=== PATIENT | female | born 1965 | race Caucasian/White ===

== ENCOUNTER 2018-03-18 13:39 | Emergency (ER) | payer OTHER ==
[2018-03-18 13:44] VITALS: BP 145/78; PULSE 107; RESP 20; TEMP 99.1
[2018-03-18 14:32] LABS: Appearance,Urine Clear (Clear); Bilirubin,Urine Negative (Negative); Blood,Urine Negative (Negative); Color,Urine Colorless; Glucose,Urine (UA) Negative (Negative); Ketones,Urine Negative (Negative); Leukocyte Esterase,Urine Negative (Negative); Nitrite,Urine Negative (Negative); PH, Urine 5.5 (5.0-8.0); Protein,Urine Negative (Negative); Specific Gravity,Urine 1.001 (1.001-1.035); Urobilinogen,Urine <2.0 mg/dL (<2.0)
--- NOTE | 2018-03-18 14:33 | XR ---
Cervical, thoracic, lumbar spine HISTORY: Pain 5 views of the cervical spine, 3 views of the thoracic spine and 3 views of the lumbar spine submitte d. Correlation to prior cervical spine 04/14/2014, MR cervical spine 01/08/2017, lumbar spine MRI 10/05/20 17, x-ray lumbar spine 09/22/2017 Cervical spine show similar findings, retrolisthesis grade 1 C5-6 with associated loss of disc height greatest at C2-3, C4-5 and C5-6, there is associated spondylosis. Postop changes are noted to the ma ndible. Vertebral bodies show preserved height. Bone mineralization may be slightly reduced. Facet ar thropathy changes are present. Multilevel foraminal encroachment present at the foramina bilaterally right greater than left, odontoid view is limited. Congenital fusion is again noted at C1-2. Thoracic spine shows vertebral bodies which have preserved height and bone mineralization. There is m ild multilevel spondylosis. There is a spinal curvature which is S-shaped involving the thoracic lumb ar spine. Lumbar spine shows postoperative change as on prior exam status post fusion L5-S1. The body height an d alignment are stable. There is multilevel spondylosis, some loss of disc height present at L2-3, L1 -2. Atherosclerotic vascular calcifications are present. IMPRESSION: Degenerative disc disease, postop changes, scoliosis and congenital anomaly as described.
[2018-03-18] MEDS ORDERED: MORPHINE SULFATE 2 MG/ML SYRINGE IM STA (14:42)
--- NOTE | 2018-03-18 15:03 | ED ---
General Adult HPI - General Chief complaint: Back Pain/Injury Stated complaint: spine pain Time Seen by Provider: 03/18/18 13:52 Source: patient, RN notes reviewed Mode of arrival: ambulatory Limitations: no limitations - History of Present Illness Initial comments: 52-year-old female since to the emergency department for a chief complaint of chronic back pain that has been worse for one day. Patient states she drove in a car for work 2 hours yesterday and stated for 8 hours at a and has had pain since. Patient states she has chronic pain but this exacerbated the pain from her neck down to her lumbar spine. Patient states it is tender to touch. Patient also complains of pressure in the back with urination. Patient denies any difficulty urinating and states she is having bowel movements regularly. Patient denies any numbness or tingling in the next remedies but states she has shooting pain to the knees. Patient is ALLERGIC to all pain medications except morphine. She is ALLERGIC to morphine pills and can only have IV or IM morphine. Patient has no acute injury to the back. Patient has an MRI scheduled and is following a neurologist and a primary care provider for this. Patient has no other complaints at this time including shortness of breath , chest pain, abdominal pain, nausea or vomiting, headache, or visual changes. - Related Data Home Medications Medication Instructions Recorded Confirmed Losartan [Cozaar] 25 mg PO DAILY 10/01/16 10/02/16 amLODIPine [Norvasc] 5 mg PO HS 10/01/16 10/02/16 Previous Rx's Medication Instructions Recorded Diazepam [Valium] 5 mg PO TID PRN #20 tab 09/28/15 Albuterol Inhaler [Ventolin Hfa 1 - 2 puff INHALATION Q4-6H PRN #1 10/01/16 Inhaler] inhaler Albuterol Nebulized [Ventolin 2.5 mg INHALATION Q4H PRN 10 Days 10/01/16 Nebulized] nebu Allergies Allergy/AdvReac Type Severity Reaction Status Date / Time acetaminophen [From Tylenol] Allergy Dyspnea Verified 03/18/18 13:44 cephalexin monohydrate Allergy Rash/Hives Verified 03/18/18 13:44 [From Keflex] codeine Allergy Rash/Hives Verified 03/18/18 13:44 duloxetine HCl Allergy Rash/Hives Verified 03/18/18 13:44 [From Cymbalta] escitalopram oxalate Allergy Rash/Hives Verified 03/18/18 13:44 [From Lexapro] hydrocodone Allergy Anaphylaxis Verified 03/18/18 13:44 hydrocortisone Allergy Rash/Hives Verified 03/18/18 13:44 hyoscyamine [Hyoscyamine] Allergy Rash/Hives Verified 03/18/18 13:44 Iodinated Contrast- Oral and Allergy Rash/Hives Verified 03/18/18 13:44 IV Dye [Iodinated Contrast Media - IV Dye] meperidine HCl [From Demerol] Allergy Rash/Hives Verified 03/18/18 13:44 metaxalone [From Skelaxin] Allergy Rash/Hives Verified 03/18/18 13:44 methylprednisolone Allergy Rash/Hives Verified 03/18/18 13:44 morphine sulfate Allergy Rash/Hives Verified 03/18/18 13:44 [From Avinza] NSAIDS (Non-Steroidal Allergy Anaphylaxis Verified 03/18/18 13:44 Anti-Inflamma Penicillins Allergy Rash/Hives Verified 03/18/18 13:44 propoxyphene HCl Allergy Rash/Hives Verified 03/18/18 13:44 [From Darvon] tramadol Allergy Rash/Hives Verified 03/18/18 13:44 vancomycin Allergy Rash/Hives Verified 03/18/18 13:44 venlafaxine HCl Allergy Rash/Hives Verified 03/18/18 13:44 [From Effexor] cranberry AdvReac Indigestion Verified 03/18/18 13:44 ondansetron HCl [From Zofran] AdvReac Nausea & Verified 03/18/18 13:44 Vomiting Review of Systems ROS Statement: Those systems with pertinent positive or pertinent negative responses have been documented in the HPI. ROS Other: All systems not noted in ROS Statement are negative. Past Medical History Past Medical History: Hypertension Additional Past Medical History / Comment(s): former etoh abuse, chronic pain syndrome History of Any Multi-Drug Resistant Organisms: None Reported Past Surgical History: Back Surgery, Orthopedic Surgery Additional Past Surgical History / Comment(s): shoulder, jaw, back surg x4 , right hand Past Psychological History: No Psychological Hx Reported Smoking Status: Current some day smoker Past Alcohol Use History: None Reported Past Drug Use History: None Reported General Exam Limitations: no limitations General appearance: alert, in no apparent distress Neck exam: Present: tenderness (Tenderness to the cervical spine.). Absent: meningismus, full ROM (Patient has limited range of motion of the neck to about 45 rotation both sides.), lymphadenopathy, thyromegaly Respiratory exam: Present: normal lung sounds bilaterally. Absent: respiratory distress, wheezes, rales, rhonchi, stridor Cardiovascular Exam: Present: regular rate, normal rhythm, normal heart sounds. Absent: systolic murmur, diastolic murmur, rubs, gallop, clicks GI/Abdominal exam: Present: soft, normal bowel sounds. Absent: distended, tenderness, guarding, rebound, rigid Extremities exam: Present: normal capillary refill (Refill less than 2 seconds and pedal pulse 2+ in the lower extremities bilaterally.) Back exam: Present: tenderness (Tenderness along the thoracic and lumbar spine.) , paraspinal tenderness (Paraspinal tenderness along the thoracic and lumbar spine.). Absent: full ROM (Patient has about 60 flexion and 20 extension of the lumbar spine. Patient has pain with rotation of the thoracic and lumbar spine.), CVA tenderness (R), CVA tenderness (L) Neurological exam: Present: alert, oriented X3, CN II-XII intact Psychiatric exam: Present: normal affect, normal mood Course Vital Signs 03/18/18 13:41 Temperature 99.1 F Pulse Rate 107 H Respiratory 20 Rate Blood Pressure 145/78 O2 Sat by Pulse 98 Oximetry Medical Decision Making - Medical Decision Making 52-year-old female presents to the emergency department for a chief complaint of chronic back pain that was exacerbated in the past day from riding in a car and standing for a long period of time. Patient is scheduled for an MRI coming up and is seeing a neurologist and primary care provider for this problem. Patient states the pain is from her neck to her lumbar spine. She states it is radiating down her legs bilaterally. Patient also complains of some low back pressure when urinating. Patient denies any difficulty urinating or bowel incontinence. Patient denies IV drug use. Patient denies any chance of . On exam patient has some limited range of motion of the neck and spine. She is walking around the room without difficulty. Patient also has tenderness from the neck through the lumbar spine. Patient has some shooting pains down lower legs but denies any numbness or tingling. XR C-spine shows similar findings things to past imaging including associated loss of disc height and grade 1 right throat this the status of C5-C6. Thoracic spine shows vertebral bodies which have preserved height and bone mineralization. There is mild multilevel spondylolysis. There is spinal curvature which is S-shaped involving the thoracic lumbar spine. Lumbar spine shows postop changes as on prior exam status post fusion L5-S1. Body height and alignment are stable. Overall, degenerative disc disease, postop changes, and scoliosis. Urinalysis is unremarkable. Patient states she is ALLERGIC to steroids. She is also ALLERGIC to Motrin and Tylenol or any other pain medications besides IV or IM morphine. Patient was given 2 mg of IV morphine in the emergency department to help alleviate the pain. She was given any pain medications outpatient as she is following a neurologist and primary care provider for this. She will follow- up with the primary care provider in one to 2 days. Patient was educated to return to the emergency Department if she develops difficulty urinating or changes in bowel function. In the meantime she will do so low back exercises and use heat for comfort. - Lab Data Lab Results 03/18/18 Range/Units 14:23 Urine Color Colorless Urine Appearance Clear (Clear) Urine pH 5.5 (5.0-8.0) Ur Specific [place] 1.001 (1.001-1.035) Urine Protein Negative (Negative) Urine Glucose (UA) Negative (Negative) Urine Ketones Negative (Negative) Urine Blood Negative (Negative) Urine Nitrite Negative (Negative) Urine Bilirubin Negative (Negative) Urine Urobilinogen <2.0 (<2.0) mg/dL Ur Leukocyte Esterase Negative (Negative) Disposition Clinical Impression: Chronic back pain Disposition: TRANSFER TO PSYCH HOSP/UNIT Condition: Good Instructions: Chronic Back Pain (ED), Lower Back Exercises (ED) Additional Instructions: Please monitor for any worsening symptoms such as changes in bladder or bowel function and return to the emergency Department if these occur. Otherwise follow-up with primary care in 1-2 days and go to your MRI appointment. Is patient prescribed a controlled substance at d/c from ED?: No Referrals: Bisi Sanchez MD [Primary Care Provider] - 1-2 days Time of Disposition: 15:03
== END 2018-03-18 15:15 | disposition home or self-care (01) ==
LOC: MERGE 13:39 → EC 13:39
DX: M54.9 Dorsalgia, unspecified (principal); G89.29 Other chronic pain; M47.814 Spondylosis without myelopathy or radiculopathy, thoracic region; M51.36 Other intervertebral disc degeneration, lumbar region; I10 Essential (primary) hypertension; F17.200 Nicotine dependence, unspecified, uncomplicated; Z98.890 Other specified postprocedural states; Z79.899 Other long term (current) drug therapy; Z88.0 Allergy status to penicillin; Z88.1 Allergy status to other antibiotic agents; Z88.5 Allergy status to narcotic agent; Z88.6 Allergy status to analgesic agent; Z88.8 Allergy status to other drugs, medicaments and biological substances
CPT/HCPCS: 99283 ×2; 96372 ×2; 81003; 72072; 72050; 72100; J2270

== ENCOUNTER → 2018-04-15 | Outpatient (CLI) | payer OTHER ==
--- NOTE | 2018-04-15 08:48 | US ---
EXAMINATION TYPE: US abdomen complete DATE OF EXAM: 04/15/2018 COMPARISON: CT 03/27/2017 CLINICAL HISTORY: R14.0 ABD BLOATING,R10.84 ABD PAIN. Bloating, abdominal pain. Known horseshoe kidne y. EXAM MEASUREMENTS: Liver Length: 19.5 cm Gallbladder Wall: 0.2 cm CBD: 0.4 cm Spleen: 8.8 cm Right Kidney: 11.5 x 3.4 x 4.3 cm Left Kidney: 11.2 x 4.5 x 4.2 cm Pancreas: Obscured by bowel gas Liver: Heterogeneous, enlarged Gallbladder: wnl Evidence for sonographic Rdz's sign: No CBD: wnl Spleen: wnl Right Kidney: No hydronephrosis or masses seen Left Kidney: No hydronephrosis or masses seen Upper IVC: wnl Abd Aorta: Atherosclerotic changes visualized without AAA IMPRESSION: 1. Fatty hepatic infiltration of the liver.
== END | disposition home or self-care (01) ==
LOC: RADUSWWP 07:44 → MERGE 07:44
PROVIDERS: ATTEND Family Medicine
DX: K76.0 Fatty (change of) liver, not elsewhere classified (principal); R14.0 Abdominal distension (gaseous)
CPT/HCPCS: 76700

== ENCOUNTER → 2018-06-16 | Outpatient (CLI) | payer OTHER ==
--- NOTE | 2018-06-16 17:00 | US ---
EXAMINATION TYPE: US abdomen complete DATE OF EXAM: 06/16/2018 COMPARISON: US 2018 CLINICAL HISTORY: R14.0 Gas pain R10.84 Gen abd pain...... Weight gain, bloating and abdominal tender ness x couple months EXAM MEASUREMENTS: Liver Length: 18.5 cm Gallbladder Wall: 0.2 cm CBD: 0.4 cm Spleen: 9.0 cm Right Kidney: 11.8 x 3.5 x 4.6 cm Left Kidney: 11.5 x 5.1 x 4.1 cm Pancreas: visualized portions wnl, limited by overlying midline bowel gas Liver: enlarged, heterogeneous Gallbladder: wnl Evidence for sonographic Rdz's sign: yes CBD: visualized portions wnl, limited by overlying bowel gas Spleen: wnl Right Kidney: wnl Left Kidney: fullness of renal pelvis extending into calyces Upper IVC: wnl Abd Aorta: atherosclerotic changes seen IMPRESSION: 1. Subtle mild left hydronephrosis is not excluded. Examination as visualized otherwise appears unrem arkable.
== END | disposition home or self-care (01) ==
LOC: RADUSWWP 11:12
PROVIDERS: ATTEND Family Medicine
DX: R10.84 Generalized abdominal pain (principal); R14.0 Abdominal distension (gaseous); R63.5 Abnormal weight gain
CPT/HCPCS: 76700

== ENCOUNTER → 2018-08-23 | Outpatient (CLI) | payer OTHER | LOC: LABWHC1 09:37 | PROVIDERS: ATTEND Internal Medicine Cardiovascular Disease | DX: R07.9 Chest pain, unspecified (principal) | CPT/HCPCS: 36415; 83704 ==

== ENCOUNTER → 2019-05-04 | Outpatient (CLI) | payer OTHER ==
--- NOTE | 2019-05-04 14:58 | US ---
EXAMINATION TYPE: US abdomen complete DATE OF EXAM: 05/04/2019 COMPARISON: US 2018 CLINICAL HISTORY: R74.8 Elevated Liver Enzymes, R14.0 Abnormal Bloat. Elevated liver enzymes, abdomin al bloating, family history of liver CA EXAM MEASUREMENTS: Liver Length: 18.4 cm Gallbladder Wall: 0.1 cm CBD: 0.4 cm Spleen: 9.0 cm Right Kidney: 11.0 x 3.5 x 4.1 cm Left Kidney: 11.7 x 4.7 x 4.7 cm Pancreas: visualized portions wnl, limited by overlying midline bowel gas Liver: enlarged, increased echogenicity, attenuating, heterogeneous with 2.0cm hypoechoic area adjac ent to gallbladder, possible focal sparing Gallbladder: wnl Evidence for sonographic Rdz's sign: no CBD: wnl Spleen: wnl Right Kidney: wnl Left Kidney: Mild dilated renal pelvis extending into ureter Upper IVC: wnl Abd Aorta: wnl IMPRESSION: 1. Hepatomegaly. 2. Mild left hydronephrosis
== END | disposition home or self-care (01) ==
LOC: RADUSWWP 07:52
PROVIDERS: ATTEND Family Medicine
DX: R16.0 Hepatomegaly, not elsewhere classified (principal); N13.30 Unspecified hydronephrosis
CPT/HCPCS: 76700

== ENCOUNTER → 2019-06-06 | Outpatient (CLI) | payer OTHER ==
--- NOTE | 2019-06-07 13:23 | MM ---
Reason for exam: screening (asymptomatic). Last mammogram was performed 1 year and 4 months ago. History: Family history of breast cancer in paternal grandmother. Physical Findings: A clinical breast exam by your physician is recommended on an annual basis and results should be correlated with mammographic findings. MG Screening Mammo w CAD Bilateral CC and MLO view(s) were taken. Prior study comparison: February 16, 2018, mammogram. There are scattered fibroglandular densities. No significant changes when compared with prior studies. ASSESSMENT: Negative, BI-RAD 1 RECOMMENDATION: Routine screening mammogram of both breasts in 1 year.
== END | disposition home or self-care (01) ==
LOC: RADMAMWWP 10:56
PROVIDERS: ATTEND Obstetrics & Gynecology
DX: Z12.31 Encounter for screening mammogram for malignant neoplasm of breast (principal)
CPT/HCPCS: 77067

== ENCOUNTER → 2021-05-31 | Outpatient (CLI) | payer OTHER ==
--- NOTE | 2021-06-04 09:40 | MM ---
Reason for exam: screening (asymptomatic). Last mammogram was performed 2 years ago. History: Patient is postmenopausal. Family history of breast cancer in paternal grandmother. Physical Findings: A clinical breast exam by your physician is recommended on an annual basis and results should be correlated with mammographic findings. MG Screening Mammo w CAD Bilateral CC and MLO view(s) were taken. Prior study comparison: February 16, 2018, mammogram. The breast tissue is heterogeneously dense. This may lower the sensitivity of mammography. Central right CC asymmetric density is more defined. ASSESSMENT: Incomplete: need additional imaging evaluation, BI-RAD 0 RECOMMENDATION: Special view mammogram of the right breast. (3D) If lesion persists on supplemental views, image directed ultrasound is recommended. [facility] will attempt to contact patient to return for supplemental views and ultrasound if indicated.
== END | disposition home or self-care (01) ==
LOC: RADMAMWWP 11:02
PROVIDERS: ATTEND Obstetrics & Gynecology
DX: Z12.31 Encounter for screening mammogram for malignant neoplasm of breast (principal); Z78.0 Asymptomatic menopausal state; Z80.3 Family history of malignant neoplasm of breast
CPT/HCPCS: 77067

== ENCOUNTER → 2021-06-11 | Outpatient (CLI) | payer OTHER ==
--- NOTE | 2021-06-11 15:08 | MM ---
Reason for exam: additional evaluation requested from abnormal screening. Last mammogram was performed less than 1 month ago. History: Patient is postmenopausal. Family history of breast cancer in paternal grandmother. Physical Findings: Nurse did not find any significant physical abnormalities on exam. MG Work Up Mamm w CAD RT CC, MLO, XCCL, ML, and spot compression CC view(s) were taken of the right breast. Prior study comparison: May 31, 2021, bilateral MG screening mammo w CAD. June 06, 2019, bilateral MG screening mammo w CAD. The breast tissue is heterogeneously dense. This may lower the sensitivity of mammography. These results were verbally communicated with the patient and result sheet given to the patient on 06/11/21. ASSESSMENT: Probably benign, BI-RAD 3 RECOMMENDATION: Follow-up diagnostic mammogram of the right breast in 6 months.
== END | disposition home or self-care (01) ==
LOC: RADMAMWWP 14:21
PROVIDERS: ATTEND Obstetrics & Gynecology
DX: R92.2 Inconclusive mammogram (principal); Z78.0 Asymptomatic menopausal state; Z80.3 Family history of malignant neoplasm of breast
CPT/HCPCS: 77065

== ENCOUNTER → 2021-09-20 | Outpatient (CLI) | payer OTHER ==
--- NOTE | 2021-09-20 11:41 | US ---
EXAMINATION TYPE: US abdomen complete DATE OF EXAM: 09/20/2021 COMPARISON: Ultrasound abdomen May 04, 2019. CT abdomen and pelvis 2017 CLINICAL HISTORY: R74.8 Abnormal levels of other serum enzymes. Abdominal pain for the past 7 months with nausea EXAM MEASUREMENTS: Liver Length: 18.0 cm Gallbladder Wall: 1.5 cm CBD: 0.6 cm Spleen: 9.3 X 3.1 cm Right Kidney: 12.1 X 5.0 X 3.5 cm Left Kidney: 11.4 X 4.6 X 5.0 cm Pancreas: wnl Liver: Increased attenuation, hepatomegaly Gallbladder: wnl Evidence for sonographic Rdz's sign: No CBD: wnl Spleen: wnl Right Kidney: No hydronephrosis or masses seen Left Kidney: Prominent calyces Upper IVC: wnl Abd Aorta: wnl The visualized liver is heterogeneously hyperechoic and enlarged. The intrahepatic portion of the IV C and proximal, mid, and distal abdominal aorta are within normal limits. There is no evidence of sh adowing mobile cholelithiasis. Common bile duct is upper limits of normal. The visualized portions of the pancreas are homogenous. The spleen is unremarkable. Kidneys are symmetric and free of hydro nephrosis. No renal lesions are seen on images saved. Poor visualization of lower pole modality cons istent with horseshoe type kidney confirmed on CT. IMPRESSION: Persistent hepatomegaly and heterogeneous hyperechoic appearance consistent with diffuse fatty infiltration and/or underlying hepatocellular disease of liver near no significant change from prior studies.
== END | disposition home or self-care (01) ==
LOC: RADUSWWP 08:06
PROVIDERS: ATTEND Family Medicine
DX: R16.0 Hepatomegaly, not elsewhere classified (principal)
CPT/HCPCS: 76700

== ENCOUNTER → 2021-10-02 | Outpatient (CLI) | payer OTHER ==
--- NOTE | 2021-10-02 10:45 | CT ---
EXAMINATION TYPE: CT facial bones wo con DATE OF EXAM: 10/02/2021 COMPARISON: NONE HISTORY: M26.[address] DLP: 821.6 mGycm. Automated Exposure Control for Dose Reduction was Utilized. TECHNIQUE: CT scan of the facial bones is performed without contrast, axial images are obtained, ramila nal reformatted images are also reviewed. FINDINGS: There is surgical plate fixating healed fracture at the left mandibular angle. There is add itional surgical plate fixating a healed fracture of the right horizontal ramus near symphysis. These cause streak artifact making evaluation slightly suboptimal. No suspicious lucency identified to sug gest loosening or bony destruction at either level. Adjacent soft tissue shows no suspicious well-for med fluid collection or drainable abscess. Temporomandibular joints are maintained bilaterally. Mitu-jw-jzkjzgyk calcified plaque bilateral carotid bulbs right greater than left is present. There i s poorly ossified or nonvisualized top of dens. Ossific fusion of the C2 and C3 vertebra are present. Multilevel uncovertebral facet degenerative changes bilaterally. Patchy opacity right sphenoid sinu s. IMPRESSION: As above
== END | disposition home or self-care (01) ==
LOC: RADCTMAIN 08:39
PROVIDERS: ATTEND Student in an Organized Health Care Education/Training Program
DX: I65.23 Occlusion and stenosis of bilateral carotid arteries (principal)
CPT/HCPCS: 70486

== ENCOUNTER 2021-11-18 09:43 | Emergency (ER) | payer OTHER ==
[2021-11-18 09:49] VITALS: RESP 18
[2021-11-18] MEDS ORDERED: MORPHINE SULFATE 4 MG/ML SYRINGE IM STA (10:12)
--- NOTE | 2021-11-18 10:23 | ED ---
Fall HPI - General Chief Complaint: Fall Stated Complaint: Fell/neck/shoulder pain Time Seen by Provider: 11/18/21 09:54 Source: patient, RN notes reviewed Mode of arrival: wheelchair Limitations: no limitations - History of Present Illness Initial Comments: 56-year-old female presents emergency Department chief complaint of a fall. Patient states she has been some dull down states that she slipped and fell. Patient complains of right shoulder pain upper back pain, neck discomfort. She states she fell forward Herself with her hands. Denies any wrist or forearm pain. Patient states that she has multiple ALLERGIES has not taken anything for the pain. Patient denies any lower extremity symptoms no low back pain no other complaints. - Related Data Home Medications Medication Instructions Recorded Confirmed Losartan [Cozaar] 25 mg PO DAILY 10/01/16 11/18/21 EPINEPHrine (Auto Inject) [Epipen] 0.3 mg IM ONCE PRN 11/18/21 11/18/21 diazePAM [Valium] 5 mg PO BID PRN 11/18/21 11/18/21 Allergies Allergy/AdvReac Type Severity Reaction Status Date / Time acetaminophen [From Tylenol] Allergy Dyspnea & Verified 11/18/21 11:44 Rash calcium carbonate Allergy Rash/Hives Verified 11/18/21 11:44 cephalexin monohydrate Allergy Rash/Hives Verified 11/18/21 11:44 [From Keflex] codeine Allergy Rash/Hives Verified 11/18/21 11:44 duloxetine [From Cymbalta] Allergy Hallucinations Verified 11/18/21 11:44 & Rash duloxetine HCl Allergy Hallucinations Verified 11/18/21 11:44 [From Cymbalta] & Rash escitalopram oxalate Allergy Rash/Hives Verified 11/18/21 11:44 [From Lexapro] hydrocodone Allergy Anaphylaxis Verified 11/18/21 11:44 hydrocortisone Allergy Rash/Hives Verified 11/18/21 11:44 hyoscyamine [Hyoscyamine] Allergy Rash/Hives Verified 11/18/21 11:44 Iodinated Contrast Media Allergy Rash/Hives Verified 11/18/21 11:44 [Iodinated Contrast Media - IV Dye] levocetirizine [From Xyzal] Allergy Vomiting & Verified 11/18/21 11:44 throat swelling linaclotide [From Linzess] Allergy Rash/Hives Verified 11/18/21 11:44 magnesium hydroxide Allergy Rash/Hives Verified 11/18/21 11:44 meperidine HCl [From Demerol] Allergy Rash/Hives Verified 11/18/21 11:44 metaxalone [From Skelaxin] Allergy Rash/Hives Verified 11/18/21 11:44 methylprednisolone Allergy Rash/Hives Verified 11/18/21 11:44 morphine sulfate Allergy Rash/Hives Verified 11/18/21 11:44 [From Avinza] NSAIDS (Non-Steroidal Allergy Rash/Hives Verified 11/18/21 11:44 Anti-Inflamma Penicillins Allergy Anaphylaxis Verified 11/18/21 11:44 -childhood propoxyphene HCl Allergy Rash/Hives Verified 11/18/21 11:44 [From Darvon] sucralfate [From Carafate] Allergy Unknown Verified 11/18/21 11:44 tramadol Allergy Rash/Hives Verified 11/18/21 11:44 vancomycin Allergy Rash/Hives Verified 11/18/21 11:44 venlafaxine HCl Allergy Rash/Hives Verified 11/18/21 11:44 [From Effexor] cranberry AdvReac Indigestion Verified 11/18/21 11:44 ondansetron HCl [From Zofran] AdvReac Nausea & Verified 11/18/21 11:44 Vomiting tuna AdvReac Nausea & Uncoded 11/18/21 11:44 Vomiting Review of Systems ROS Statement: Those systems with pertinent positive or pertinent negative responses have been documented in the HPI. ROS Other: All systems not noted in ROS Statement are negative. Past Medical History Past Medical History: Hypertension Additional Past Medical History / Comment(s): former etoh abuse, chronic pain syndrome History of Any Multi-Drug Resistant Organisms: None Reported Past Surgical History: Back Surgery, Orthopedic Surgery Additional Past Surgical History / Comment(s): shoulder, jaw, back surg x4 , right hand Past Psychological History: No Psychological Hx Reported Smoking Status: Current every day smoker Past Alcohol Use History: None Reported Past Drug Use History: None Reported General Exam Limitations: no limitations General appearance: alert, in no apparent distress Head exam: Present: atraumatic, normocephalic, normal inspection Eye exam: Present: normal appearance, PERRL, EOMI. Absent: scleral icterus, conjunctival injection, periorbital swelling ENT exam: Present: normal exam, normal oropharynx, mucous membranes moist Neck exam: Present: normal inspection, full ROM. Absent: tenderness, meningismus, lymphadenopathy Respiratory exam: Present: normal lung sounds bilaterally. Absent: respiratory distress, wheezes, rales, rhonchi, stridor Cardiovascular Exam: Present: normal rhythm, tachycardia, normal heart sounds. Absent: systolic murmur, diastolic murmur, rubs, gallop, clicks Extremities exam: Present: other (Upper extremity strength equal bilaterally mild tenderness neurovascular intact) Back exam: Present: full ROM, tenderness, paraspinal tenderness (Thoracic no lumbar), vertebral tenderness Neurological exam: Present: alert, oriented X3, CN II-XII intact, reflexes normal. Absent: motor sensory deficit Course Vital Signs 11/18/21 09:46 Temperature 99.2 F Pulse Rate 114 H Respiratory 18 Rate Blood Pressure 156/88 O2 Sat by Pulse 94 L Oximetry Medical Decision Making - Medical Decision Making 56-year-old presented for a fall. Patient has no acute changes patient has chronic changes of her thoracic cervical spine patient has no neurological deficits stone around symptoms. Patient discharged in stable condition return parameters were discussed. Disposition Clinical Impression: Fall, Back strain, Shoulder pain Disposition: HOME SELF-CARE Condition: Stable Instructions (If sedation given, give patient instructions): Back Pain (ED) Additional Instructions: Please return to the Emergency Department if symptoms worsen or any other concerns. Is patient prescribed a controlled substance at d/c from ED?: No Referrals: Bisi Sanchez MD [Primary Care Provider] - 1-2 days Time of Disposition: 11:49
--- NOTE | 2021-11-18 11:19 | XR ---
EXAMINATION TYPE: XR cervical spine 7 views comp, XR thoracic spine 3 views DATE OF EXAM: 11/18/2021 COMPARISON: Cervical spine MRI 01/08/2017 and prior radiograph 03/18/2018. HISTORY: 56-year-old female with pain after fall FINDINGS: Cervical spine: Plate and screw fixation of the mandible. No predental space widening or prevertebral soft tissue swe lling. There appears to be chronic bony ankylosis between C1 and C2 along both anterior and posterior elements. Multilevel hypertrophic facet and uncovertebral joint arthropathy. Degenerative disc disea se throughout the cervical spine shows some progression from 2018 with mild disc space narrowing now present throughout. Anterior endplate spondylosis mid cervical spine. Reversal of the normal cervical lordosis but with preserved alignment. Moderate bony neuroforaminal narrowing on the right at C6-C7 and mild at C5-C6. Moderate bony neuroforaminal narrowing on the left at C4-C5 and C5-C6. Suboptimal odontoid view. Thoracic spine: 12 rib bearing thoracic vertebral bodies. Slight levoconvex curvature along the upper lumbar spine. A ll pedicles are visualized. Vertebral body heights are preserved and alignment is maintained. There m ay be mild degenerative disc disease along the upper third thoracic spine. IMPRESSION: 1. 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 [id number] multilevel spondylotic ribera e (slightly progressed from 2018) with reversal of the normal cervical lordosis which could be positi onal or due to muscle spasm. Moderate bony neuroforaminal narrowing in the mid to lower cervical spin e as outlined above. 2. Thoracic spine: No vertebral compression collapse or malalignment.
--- NOTE | 2021-11-18 11:20 | XR ---
Shoulder HISTORY: Pain 3 views the right shoulder Bone mineralization, joint spaces and alignment are maintained at the glenohumeral joint. No fracture or dislocation. There is acromioclavicular joint arthropathy. Right lung apex as visualized is susanne l. impression: Acromioclavicular joint arthropathy, shoulder MRI may be of benefit
[2021-11-18 12:56] VITALS: BP 148/87; PULSE 98; TEMP 98.9
== END 2021-11-18 12:18 | disposition home or self-care (01) ==
LOC: EC 09:43
DX: S29.012A Strain of muscle and tendon of back wall of thorax, initial encounter (principal); I10 Essential (primary) hypertension; F17.200 Nicotine dependence, unspecified, uncomplicated; Z79.899 Other long term (current) drug therapy; W01.0XXA Fall on same level from slipping, tripping and stumbling without subsequent striking against object, initial encounter
CPT/HCPCS: 72070; 72050; 73030; 99284; 96372; J2270

== ENCOUNTER → 2021-12-25 | Outpatient (CLI) | payer OTHER ==
--- NOTE | 2021-12-25 12:06 | MM ---
Reason for exam: follow-up at short interval from prior study. Last mammogram was performed 7 months ago. History: Patient is postmenopausal. Family history of breast cancer in paternal grandmother. Physical Findings: A clinical breast exam by your physician is recommended on an annual basis and results should be correlated with mammographic findings. MG Diagnostic Mammo RT w CAD CC and MLO view(s) were taken of the right breast. Prior study comparison: June 11, 2021, right breast MG work up mamm w CAD RT. May 31, 2021, bilateral MG screening mammo w CAD. The breast tissue is heterogeneously dense. This may lower the sensitivity of mammography. There is no discrete abnormality. No significant new findings when compared with previous films. These results were verbally communicated with the patient and result sheet given to the patient on 12/25/21. ASSESSMENT: Negative, BI-RAD 1 RECOMMENDATION: Return to routine screening mammogram schedule for both breasts.
== END | disposition home or self-care (01) ==
LOC: RADMAMWWP 10:37
PROVIDERS: ATTEND Obstetrics & Gynecology
DX: R92.2 Inconclusive mammogram (principal); Z78.0 Asymptomatic menopausal state; Z80.3 Family history of malignant neoplasm of breast
CPT/HCPCS: 77065

== ENCOUNTER → 2022-11-11 | Outpatient (CLI) | payer OTHER ==
--- NOTE | 2022-11-12 18:36 | MM ---
Reason for Exam: Screening (asymptomatic). Last mammogram was performed 1 year(s) and 5 month(s) ago. Patient History: Menarche at age 13. First Full-Term at age 19. Postmenopausal. Paternal grandmother had breast cancer. Risk Values: Isabelle 5 year model risk: 0.9%. NCI Lifetime model risk: 5.9%. Prior Study Comparison: 05/31/2021 Bilateral Screening Mammogram, [facility]. 06/11/2021 Right Diagnostic Mammogram, [facility]. 12/25/2021 Right Diagnostic Mammogram, [facility]. Tissue Density: There are scattered fibroglandular densities. Findings: Analyzed By CAD. There appear to be 2 new ill-defined densities within the right breast medial lateral oblique view. In the middle position lower half this measures approximately 0.6 cm located 6 cm the nipple. In the posterior midportion right breast this measures 0.5 cm located 9 cm in the nipple. Additional workup with diagnostic imaging is recommended. Overall Assessment: Incomplete: need additional imaging evaluation, BI-RAD 0 Management: Diagnostic Mammogram of the right breast. Diagnostic Breast Ultrasound of the right breast. A negative mammogram report should not preclude additional follow up of suspicious palpable abnormalities. Patient should continue monthly self breast exam. A clinical breast exam by your physician is recommended on an annual basis and results should be correlated with mammographic findings. Electronically signed and approved by: Lonnie King D.O. Radiologis
== END | disposition home or self-care (01) ==
LOC: RADMAMWWP 13:16
PROVIDERS: ATTEND Obstetrics & Gynecology
DX: Z12.31 Encounter for screening mammogram for malignant neoplasm of breast (principal); Z78.0 Asymptomatic menopausal state; Z80.3 Family history of malignant neoplasm of breast
CPT/HCPCS: 77067

== ENCOUNTER → 2023-05-27 | Outpatient (CLI) | payer OTHER ==
--- NOTE | 2023-05-28 20:34 | CTL ---
EXAMINATION TYPE: CT Low Dose Lung DATE OF EXAM ORDERED: 05/28/2023 HISTORY: Z12.2 NICOTINE DEPENDENCE, CIGARET,Z87.891,F17.210. Current smoker, 42 pack year history. [facility] cancer screening CT DLP: 61.[address] CTDI: 1.70 mGy Automated exposure control for dose reduction was used. SCREENING VISIT: First screening visit COMPARISON: None TECHNIQUE: Low dose computed tomography scan was performed through the chest at 1 mm thick sections a nd reconstructed images in multiple planes at 1 mm and [address] DIAGNOSTIC QUALITY: Satisfactory FINDINGS: LUNG NODULES: 2.2 mm right lower lobe pulmonary nodule (series 4, image 195). Right middle lobe 3 mm pulmonary nodule (series 4, image 180). Few scattered punctate calcified granulomas. LUNGS: COPD: Severity: Mild Fibrosis: Severity: None Lymph nodes: None Other findings: None RIGHT PLEURAL SPACE: Effusion: None Calcification: None Thickening: None Pneumothorax: None LEFT PLEURAL SPACE: Effusion: None Calcification: None Thickening: None Pneumothorax: None HEART: Heart Size: Normal Coronary Calcification: Small Pericardial Effusion: None OTHER FINDINGS: Upper abdomen: Liver is diffusely hypoattenuating. Bony thorax: None Supraclavicular region: None Other: None IMPRESSION: 1. A couple of pulmonary nodules measuring up to [address] LUNG RAD AND CT CHEST RECOMMENDATION: Lung-Rad 2 Benign Appearance or Behavior: Continue annual sc reening with LDCT in 12 months. S Modifier (other clinically significant findings): None
== END | disposition home or self-care (01) ==
LOC: RADCTMAIN 12:43
PROVIDERS: ATTEND Family Medicine
DX: Z12.2 Encounter for screening for malignant neoplasm of respiratory organs (principal); K76.0 Fatty (change of) liver, not elsewhere classified; R91.8 Other nonspecific abnormal finding of lung field; F17.210 Nicotine dependence, cigarettes, uncomplicated
CPT/HCPCS: 71271

== ENCOUNTER → 2023-07-23 | Outpatient (CLI) | payer OTHER ==
--- NOTE | 2023-07-23 14:47 | XR ---
EXAM TYPE: LUMBAR SPINE X RAY SERIES COMPARISON: NONE HISTORY: Chronic back pain TECHNIQUE: 4 views are submitted. FINDINGS: Alignment is anatomic. The pedicles are intact. The transverse processes are intact. There is no s pondylolysis or spondylolisthesis. Postoperative changes L5-S1 with grade 1 slight anterior listhesi s.. Multilevel degenerative changes lumbar spine. IMPRESSION: 1. Multilevel pkzw-ks-npapidze degenerative change of the lumbar spine. 2. Postsurgical changes L5-S1 with grade 1 anterolisthesis.
== END | disposition home or self-care (01) ==
LOC: RADXRMAIN 13:47
PROVIDERS: ATTEND Family Medicine
DX: G89.29 Other chronic pain (principal); M51.36 Other intervertebral disc degeneration, lumbar region; M43.17 Spondylolisthesis, lumbosacral region; M47.816 Spondylosis without myelopathy or radiculopathy, lumbar region
CPT/HCPCS: 72100

== ENCOUNTER → 2023-07-23 | Outpatient (CLI) | payer OTHER ==
[2023-07-23 14:12] VITALS: BP 86/52; PULSE 66; RESP 16
--- NOTE | 2023-07-23 14:54 | P.PAINPG ---
PQRS Measure Charge Sheet Comment: HISTORY OF PRESENT ILLNESS: 58 yr old female as a referral from Dr Claudio Castro presents today w severe and chronic LBP x 5 yrs secondary to post laminectomy syndrome for evaluation. Pt states pain level is provoked at 10 /10 in intensity, constant, localized in the lower lumbar spine, throbbing in character w shooting pain towards the groin and feet. Pain is provoked by standing/ sitting for periods of 15 min or more. Pain is alleviated by PT in 2018, heat, ice, repositioning and rest. Oswestry axial pain score at 31. PMH: OA, HTN PSH: Shoulder Surgery, Jaw Surgery, Lumbar Surgery x4, R Hand Surgery SH: Daily tobacco use, Hx of ETOH abuse, No illicit drug use FH: Non contributory All: See list Meds: See list REVIEW OF ORGAN SYSTEMS: CONSTITUTIONAL: No fevers or chills. No recent weight loss. NEUROLOGICAL: + numbness and tingling along the distal extremities. No seizure disorders or headaches. MUSCULOSKELETAL: + pain PSYCHIATRIC: Denies current depression or suicidal thoughts. Physical Examinations : Constitutional : Cooperative , not in acute distress . Neurologic : Cranial nerve II to XII intact. No focal neurological deficits. Psychiatric : alert & oriented x 3. Matching mood & appropriate affect. Judgment & insight intact. Musculoskeletal : Cervical Spine Motor strength in the deltoid and biceps: Normal right side. Normal Left side Motor strength biceps and the wrist extensors: Normal right side . Normal left side Motor strength in the triceps muscle: Normal right side. Normal left side Deep tendon reflexes: Normal at the biceps. Normal at Brachioradialis. Normal at triceps Vertebral body tenderness to deep palpation over Cervical facet loading test: positive bilaterally Spurling test: positive bilaterally Neck distraction test: positive bilaterally Oj sign: positive bilaterally Lumbar spine Motor strength lower extremities ,thigh and legs 5/5 Right side , 5/5 Left side Deep tendon reflexes : Normal Knee Jerk. Normal Ankle Jerk Vertebral body tenderness over Boles Test positive Lumbar facet Loading Test: positive Right / positive Left Range of motion of the lumbar spine Flexion 30 degrees, extension 10 degrees Straight Leg Raise test: Left/ Right positive at degree Fernando test: positive right / positive left. Severe tenderness over the Sacroiliac joint on the Right / Left sides Gaenslen test: positive bilaterally Seated flexion test: positive bilaterally. Sacral spine : Severe tenderness over the Sacroiliac joint: right side / left side Range of motion: Flexion of the lumbar spine <60 degrees Range of motion: Extension of the lumbar spine <20 degrees Gaenslen's Test positive Jaime's Test positive Fernando test: positive right side / left side Thigh Thrust Test Sacral Thrust Test Imaging: MRI with/ without contrast of the lumbar spine from 10/05/17 reviewed Assessment/ Plan : Post laminectomy syndrome Recommendation of updated MRI lumbar spine non contrast Dx M51.36. RTC in 2 wks for a re evaluation. All questions answered. I have spent greater than 30 minutes on patient care today. Dr Cuello was available by phone for the evaluation of this patient. The time was used to review the medical records including relevant urine studies and Prescription history (MAPs), review of the available imaging, evaluation and examination of the patient, coordination of care with the medical staff and if applicable referring physicians, as well as creation of the medical record PQRS Narrative: Smoking Status Current some day smoker Home Medications: Ambulatory Orders Losartan [Cozaar] 25 mg PO DAILY 10/01/16 EPINEPHrine (Auto Inject) [Epipen] 0.3 mg IM ONCE PRN 11/18/21 diazePAM [Valium] 5 mg PO BID PRN 11/18/21 Controlled Substance Measures - Controlled Substance Measures Is patient prescribed a controlled substance at discharge?: No
== END ==
LOC: PNWHC3 12:50
PROVIDERS: ATTEND Specialist
DX: M96.1 Postlaminectomy syndrome, not elsewhere classified (principal); M19.90 Unspecified osteoarthritis, unspecified site; I10 Essential (primary) hypertension; F17.200 Nicotine dependence, unspecified, uncomplicated; Z79.899 Other long term (current) drug therapy; Z88.1 Allergy status to other antibiotic agents; Z88.8 Allergy status to other drugs, medicaments and biological substances; Z88.5 Allergy status to narcotic agent; Z88.0 Allergy status to penicillin; Z88.2 Allergy status to sulfonamides; Z91.018 Allergy to other foods; Z88.6 Allergy status to analgesic agent
CPT/HCPCS: 99211

== ENCOUNTER → 2023-07-31 | Outpatient (CLI) | payer OTHER ==
--- NOTE | 2023-07-31 19:21 | MR ---
EXAMINATION TYPE: MR lumbar spine wo con DATE OF EXAM: 07/31/2023 COMPARISON: 07/23/2023 HISTORY: 58-year-old female M51.36 DISC DEGENERATION, LUMBAR REGION, Low back pain, hx of surgery TECHNIQUE: Multiplanar, multisequence images of the lumbar spine were acquired without IV contrast. FINDINGS: Horseshoe kidney. Patient status post L5-S1 posterior and interbody fusion. Mild to moderate degenerative disc disease with variable disc desiccation, mild disc height loss, dis c bulging throughout the lumbar spine. There is some edematous Modic type I endplate changes anterior ly at L1-L2. Disc bulges impress on the ventral thecal sac. No large focal disc herniation or significant spinal c anal stenosis is seen. Conus medullaris is normal. No suspicious bone marrow replacement. Vertebral body heights are preserved and alignment is maintained. On the right, there is mild neuroforaminal narrowing throughout. Moderate neuroforaminal narrowing at L5-S1. There is some inhomogeneous low signal partially filling the right neural foramen, sagittal i mage 9 and axial image 3. On the left, there is mild neuroforaminal narrowing at L2-L5 levels. IMPRESSION: 1. Status post L5-S1 posterior and interbody fusion. There is low signal material partially filling t he right neuroforamen suspicious for perineural fibrosis along the exiting right L5 nerve root. Moder ate right neuroforaminal stenosis at this level. 2. Mild to moderate degenerative disc disease throughout the lumbar spine. There is no large focal di sc herniation or significant spinal canal stenosis.
== END | disposition home or self-care (01) ==
LOC: RADMRIMAIN 13:32
PROVIDERS: ATTEND Specialist
DX: M51.36 Other intervertebral disc degeneration, lumbar region (principal); M99.73 Connective tissue and disc stenosis of intervertebral foramina of lumbar region; Z98.890 Other specified postprocedural states
CPT/HCPCS: 72148

== ENCOUNTER → 2023-08-06 | Outpatient (CLI) | payer OTHER ==
[2023-08-06 10:36] VITALS: BP 131/72; PULSE 101; RESP 15; TEMP 98.7
--- NOTE | 2023-08-06 11:21 | P.PAINPG ---
PQRS Measure Charge Sheet Comment: HISTORY OF PRESENT ILLNESS: 58 yr old female presents today w severe and chronic LBP x 5 yrs secondary to post laminectomy syndrome for evaluation. Pt states pain level is provoked at 10 /10 in intensity, constant, localized in the lower lumbar spine, throbbing in character w shooting pain towards the feet. Pain is provoked by standing/ sitting for periods of 15 min or more. Pt initially requested pain medication only and stated Dr Castro told her we will give her that. Also states Dr Castro told her that steroid is not used in the ESIs and states she heard it elevates BP. Clarified to pt that steroid is used for ESIs and if pt develops a reaction, the best place to find out is in a hospital. Pain is alleviated by PT in 2018, heat, ice, repositioning and rest. Oswestry axial pain score at 31. Interventional procedures include L4-S1 fusion Medications include Tyl REVIEW OF ORGAN SYSTEMS: CONSTITUTIONAL: No fevers or chills. No recent weight loss. NEUROLOGICAL: + numbness and tingling along the distal extremities. No seizure disorders or headaches. MUSCULOSKELETAL: + pain PSYCHIATRIC: Denies current depression or suicidal thoughts. Physical Examinations : Constitutional : Cooperative , not in acute distress . Neurologic : Cranial nerve II to XII intact. No focal neurological deficits. Psychiatric : alert & oriented x 3. Matching mood & appropriate affect. Judgment & insight intact. Musculoskeletal : Cervical Spine Motor strength in the deltoid and biceps: Normal right side. Normal Left side Motor strength biceps and the wrist extensors: Normal right side . Normal left side Motor strength in the triceps muscle: Normal right side. Normal left side Deep tendon reflexes: Normal at the biceps. Normal at Brachioradialis. Normal at triceps Vertebral body tenderness to deep palpation over Cervical facet loading test: positive bilaterally Spurling test: positive bilaterally Neck distraction test: positive bilaterally Oj sign: positive bilaterally Lumbar spine Motor strength lower extremities ,thigh and legs 5/5 Right side , 5/5 Left side Deep tendon reflexes : Normal Knee Jerk. Normal Ankle Jerk Vertebral body tenderness over L5 Boles Test positive over BL L5-S1 Lumbar facet Loading Test: positive Right / positive Left Range of motion of the lumbar spine Flexion 30 degrees, extension 10 degrees Straight Leg Raise test: Left/ Right positive at degree Fernando test: positive right / positive left. Severe tenderness over the Sacroiliac joint on the Right / Left sides Gaenslen test: positive bilaterally Seated flexion test: positive bilaterally. Sacral spine : Severe tenderness over the Sacroiliac joint: right side / left side Range of motion: Flexion of the lumbar spine <60 degrees Range of motion: Extension of the lumbar spine <20 degrees Gaenslen's Test positive Jaime's Test positive Fernando test: positive right side / left side Thigh Thrust Test Sacral Thrust Test Imaging: MRI without contrast of the lumbar spine from 07/31/23 reviewed Assessment/ Plan : Post laminectomy syndrome Recommendation of BL TFESI L5-S1. May need a series of injections for optimal pain relief. Risks, benefits of procedure discussed and pt verbalized understanding. Protocol for discontinuation/ continuation of medications palacios rrounding procedure discussed. All questions answered. I have spent greater than 30 minutes on patient care today. Dr Cuello was available by phone for the evaluation of this patient. The time was used to review the medical records including relevant urine studies and Prescription history (MAPs), review of the available imaging, evaluation and examination of the patient, coordination of care with the medical staff and if applicable referring physicians, as well as creation of the medical record PQRS Narrative: Smoking Status Current some day smoker Home Medications: Ambulatory Orders Losartan [Cozaar] 25 mg PO DAILY 10/01/16 EPINEPHrine (Auto Inject) [Epipen] 0.3 mg IM ONCE PRN 11/18/21 diazePAM [Valium] 5 mg PO BID PRN 11/18/21 Controlled Substance Measures - Controlled Substance Measures Is patient prescribed a controlled substance at discharge?: No
== END ==
LOC: PNWHC3 09:30
PROVIDERS: ATTEND Specialist
DX: M96.1 Postlaminectomy syndrome, not elsewhere classified (principal); F17.200 Nicotine dependence, unspecified, uncomplicated; Z88.1 Allergy status to other antibiotic agents; Z88.8 Allergy status to other drugs, medicaments and biological substances; Z91.018 Allergy to other foods; Z88.5 Allergy status to narcotic agent; Z88.0 Allergy status to penicillin; Z88.2 Allergy status to sulfonamides
CPT/HCPCS: 99211

== ENCOUNTER 2023-09-08 08:52 | Emergency (ER) | payer OTHER ==
[2023-09-08] MEDS ORDERED: SODIUM CHLORIDE 0.9% 1,000 ML IV STA (09:11)
[2023-09-08] MEDS ORDERED: METOCLOPRAMIDE 5 MG/ML 2 ML VIAL IVP STA (09:12)
[2023-09-08] MEDS ORDERED: MORPHINE SULFATE 4 MG/ML SYRINGE IVP STA ×2 (09:12→12:58)
--- NOTE | 2023-09-08 09:23 | ED ---
General Adult HPI - General Chief complaint: Abdominal Pain Stated complaint: lower abd pain Time Seen by Provider: 09/08/23 09:00 Source: patient, RN notes reviewed, old records reviewed Mode of arrival: ambulatory Limitations: no limitations - History of Present Illness Initial comments: Patient is a 58-year-old female who presents emergency Department complaining of abdominal pain. States the suprapubic in nature. Has a chronic history of back issues but no recent trauma. States she is having severe lower abdominal pain with chronic back pain issues. States she is having increased urinary frequency also suprapubic pain. States this is been a chronic issue for her but seems to have been exacerbated. Denies any previous abdominal surgeries. Denies any other symptoms. Denies any fever. Denies any hematuria. Denies any vaginal bleeding or discharge. Denies any constipation. Denies any diarrhea. Presents for further evaluation at this time of concern for her abdominal pain. Denies any lower extremity paralysis. States she is urinating has been chronic but seems to be worse over the last couple days. - Related Data Home Medications Medication Instructions Recorded Confirmed diazePAM [Valium] 5 mg PO DAILY PRN 11/18/21 09/08/23 Losartan [Cozaar] 50 mg PO DAILY 09/08/23 09/08/23 Previous Rx's Medication Instructions Recorded Dicyclomine [Bentyl] 10 mg PO TID PRN 7 Days #21 capsule 09/08/23 Allergies Allergy/AdvReac Type Severity Reaction Status Date / Time acetaminophen [From Tylenol] Allergy Dyspnea & Verified 09/08/23 10:08 Rash calcium carbonate Allergy Rash/Hives Verified 09/08/23 10:08 cephalexin monohydrate Allergy Rash/Hives Verified 09/08/23 10:08 [From Keflex] codeine Allergy Rash/Hives Verified 09/08/23 10:08 duloxetine [From Cymbalta] Allergy Hallucinations Verified 09/08/23 10:08 & Rash duloxetine HCl Allergy Hallucinations Verified 09/08/23 10:08 [From Cymbalta] & Rash escitalopram oxalate Allergy Rash/Hives Verified 09/08/23 10:08 [From Lexapro] hydrocodone Allergy Anaphylaxis Verified 09/08/23 10:08 hydrocortisone Allergy Rash/Hives Verified 09/08/23 10:08 hyoscyamine [Hyoscyamine] Allergy Rash/Hives Verified 09/08/23 10:08 Iodinated Contrast Media Allergy Rash/Hives Verified 09/08/23 10:08 [Iodinated Contrast Media - IV Dye] levocetirizine [From Xyzal] Allergy Vomiting & Verified 09/08/23 10:08 throat swelling linaclotide [From Linzess] Allergy Rash/Hives Verified 09/08/23 10:08 magnesium hydroxide Allergy Rash/Hives Verified 09/08/23 10:08 meperidine HCl [From Demerol] Allergy Rash/Hives Verified 09/08/23 10:08 metaxalone [From Skelaxin] Allergy Rash/Hives Verified 09/08/23 10:08 methylprednisolone Allergy Rash/Hives Verified 09/08/23 10:08 morphine sulfate Allergy Rash/Hives Verified 09/08/23 10:08 [From Avinza] NSAIDS (Non-Steroidal Allergy Rash/Hives Verified 09/08/23 10:08 Anti-Inflamma Penicillins Allergy Anaphylaxis Verified 09/08/23 10:12 -childhood propoxyphene HCl Allergy Rash/Hives Verified 09/08/23 10:08 [From Darvon] sucralfate [From Carafate] Allergy Unknown Verified 09/08/23 10:08 tramadol Allergy Rash/Hives Verified 09/08/23 10:08 vancomycin Allergy Rash/Hives Verified 09/08/23 10:08 venlafaxine HCl Allergy Rash/Hives Verified 09/08/23 10:08 [From Effexor] cranberry AdvReac Indigestion Verified 09/08/23 10:08 ondansetron HCl [From Zofran] AdvReac Nausea & Verified 09/08/23 10:08 Vomiting tuna AdvReac Nausea & Uncoded 09/08/23 08:58 Vomiting Review of Systems ROS Statement: Those systems with pertinent positive or pertinent negative responses have been documented in the HPI. Review of Systems: CONST: Denies fever EYES: Denies blurry vision ENT: Denies nasal congestion C/V: Denies Chest pain RESP: Denies shortness of breath GI: Endorses Abdominal pain : Denies dysuria SKIN: Denies rash. MSK: Denies joint pain. NEURO: Denies headache ROS Other: All systems not noted in ROS Statement are negative. Past Medical History Past Medical History: Hypertension Additional Past Medical History / Comment(s): former etoh abuse, chronic pain syndrome History of Any Multi-Drug Resistant Organisms: None Reported Past Surgical History: Back Surgery, Orthopedic Surgery Additional Past Surgical History / Comment(s): shoulder, jaw, back surg x4 , right hand Past Psychological History: No Psychological Hx Reported Smoking Status: Current every day smoker Past Alcohol Use History: None Reported Past Drug Use History: None Reported General Exam - General Exam Comments Initial Comments: General: Appears in mild to moderate distress. HEAD: Normal with no signs of head trauma. EYES: PERRLA, EOMI, conjunctiva normal, no discharge. ENT: Hearing grossly intact, normal oropharynx. RESPIRATORY: Clear breath sounds bilaterally. No wheezes, rales, or rhonchi. C/V: Tachycardic with regular rhythm. S1 and S2 auscultated, no edema, peripheral pulses 2+ and intact throughout ABD: Abdomen soft, tender to palpation in bilateral lower quadrants and suprapubically. Appears to have some bladder distention on exam. EXT: Normal range of motion, no obvious deformity SKIN: No rashes or lesions observed on exposed skin. NEURO: Alert and oriented 4. No focal deficits. Limitations: no limitations Course Vital Signs 09/08/23 09/08/23 09/08/23 08:55 10:00 11:39 Temperature 97.6 F 98.1 F Pulse Rate 120 H 71 65 Respiratory 18 18 22 Rate Blood Pressure 154/74 119/78 109/70 O2 Sat by Pulse 99 100 98 Oximetry 09/08/23 09/08/23 09/08/23 12:26 13:28 14:41 Temperature Pulse Rate 65 77 70 Respiratory 20 20 16 Rate Blood Pressure 123/85 118/72 127/82 O2 Sat by Pulse 100 96 97 Oximetry Medical Decision Making - Medical Decision Making Was pt. sent in by a medical professional or institution (, PA, MASTER TAX ADVISOR, urgent care, hospital, or intermediate...) When possible be specific @ -No Did you speak to anyone other than the patient for history (EMS, parent, family, police, friend...)? What history was obtained from this source @ -No Did you review nursing and triage notes (agree or disagree)? Why? @ -I reviewed and agree with nursing and triage notes Were old charts reviewed (outside hosp., previous admission, EMS record, old EKG, old radiological studies, urgent care reports/EKG's, intermediate records)? Report findings @ -No old charts were reviewed Differential Diagnosis (chest pain, altered mental status, abdominal pain women, abdominal pain men, vaginal bleeding, weakness, fever, dyspnea, syncope, headache, dizziness, GI bleed, back pain, seizure, CVA, palpatations, mental health, musculoskeletal)? @ -Differential Abdominal Pain Women: Appendicitis, Cholecystitis, diverticulosis, ischemic bowel, pancreatitis, hepatitis, UTI, gastroenteritis, AAA, incarcerated hernia, bowel obstruction, constipation, inflammatory bowel, hepatitis, peptic ulcer disease, splenic infarction, perforated viscus, vulvitis, ovarian torsion, PID, kidney stone, placenta abruption, this is not meant to be an all-inclusive list EKG interpreted by me (3pts min.). @ -As above X-rays interpreted by me (1pt min.). @ -None done CT interpreted by me (1pt min.). @ -CT imaging reveals no obvious acute intra-abdominal process. CT lumbar spine also reveals no obvious acute process. U/S interpreted by me (1pt. min.). @ -None done What testing was considered but not performed or refused? (CT, X-rays, U/S, labs)? Why? @ -None What meds were considered but not given or refused? Why? @ -None Did you discuss the management of the patient with other professionals (professionals i.e. , PA, MASTER TAX ADVISOR, lab, RT, psych nurse, social worker school, enrollment consultant, teacher, health promotion officer, manager of case)? Give summary @ -No Was smoking cessation discussed for >3mins.? @ -No Was critical care preformed (if so, how long)? @ -No Were there social determinants of health that impacted care today? How? (Homelessness, low income, unemployed, alcoholism, drug addiction, transportation, low edu. Level, literacy, decrease access to med. care, penitentiary, rehab)? @ -No Was there de-escalation of care discussed even if they declined (Discuss DNR or withdrawal of care, Hospice)? DNR status @ -No What co-morbidities impacted this encounter? (DM, HTN, Smoking, COPD, CAD, Cancer, CVA, ARF, Chemo, Hep., AIDS, mental health diagnosis, sleep apnea, morbid obesity)? @ -None Was patient admitted / discharged? Hospital course, mention meds given and route, prescriptions, significant lab abnormalities, going to OR and other pertinent info. @ -The patient's presentation and physical exam, I'm concerned for what appears to be abdominal pain of unknown etiology. I'm concerned for urinary retention. We will obtain a bladder scan as well as abdominal computed tomography scan imaging, CT lumbar spine and abdominal labs. She'll be sent likely she with IV fluids, morphine, Reglan. Patient was in agreement with this plan. No concern for cauda equina syndrome at this time. Patient does have a history of what sounds like urinary frequency and mild retention seems to be worse currently. Vital signs within acceptable limits except for tachycardia likely secondary to pain. CT imaging is unremarkable. EKG within acceptable limits. Patient's auditory studies remarkable for lactic acidosis of 2.9 which cleared with IV fluids. Remainder the workup unremarkable. On reevaluation, patient is feeling improved. She is not retaining urine. We discussed her workup. I did offer observation admission but she elected to be discharged home with return if symptoms worsen. She was in agreement with this plan. I will provide the patient with a prescription for Bentyl, ODT Zofran. I instructed the patient to follow up with their PCP in the next 1-3 days. I explained that the patient should return to the emergency department if they experience any worsening symptoms. Strict return precautions were discussed with the patient. The patient expressed understanding of these instructions. I answered all questions that the patient had. The patient was discharged home in good condition with their prescriptions and follow up information. Undiagnosed new problem with uncertain prognosis? @ -No Drug Therapy requiring intensive monitoring for toxicity (Heparin, Nitro, Insulin, Cardizem)? @ -No Were any procedures done? @ -No Diagnosis/symptom? @ -Abdominal pain of unknown etiology Acute, or Chronic, or Acute on Chronic? @ -Acute Uncomplicated (without systemic symptoms) or Complicated (systemic symptoms)? @ -Uncomplicated Side effects of treatment? @ -none Exacerbation, Progression, or Severe Exacerbation] @ -no Poses a threat to life or bodily function? @ -no - Lab Data Result diagrams: 09/08/23 09:37 09/08/23 09:37 Lab Results 09/08/23 09/08/23 09/08/23 Range/Units 09:37 09:37 09:37 WBC 8.0 (3.8-10.6) k/uL RBC 4.38 (3.80-5.40) m/uL Hgb 14.4 (11.4-16.0) gm/dL Hct 41.6 (34.0-46.0) % MCV 94.8 (80.0-100.0) fL MCH 32.8 (25.0-35.0) pg MCHC 34.6 (31.0-37.0) g/dL RDW 11.7 (11.5-15.5) % Plt Count 278 (150-450) k/uL MPV 7.9 Neutrophils % 69 % Lymphocytes % 22 % Monocytes % 5 % Eosinophils % 3 % Basophils % 1 % Neutrophils # 5.5 (1.3-7.7) k/uL Lymphocytes # 1.8 (1.0-4.8) k/uL Monocytes # 0.4 (0-1.0) k/uL Eosinophils # 0.2 (0-0.7) k/uL Basophils # 0.0 (0-0.2) k/uL PT 10.4 (10.0-12.5) sec INR 0.9 (<1.2) APTT 24.4 (22.0-30.0) sec Sodium (137-145) mmol/L Potassium (3.5-5.1) mmol/L Chloride (98-107) mmol/L Carbon Dioxide (22-30) mmol/L Anion Gap mmol/L BUN (7-17) mg/dL Creatinine (0.52-1.04) mg/dL Est GFR (CKD-EPI)AfAm (>60 ml/min/1.73 sqM) Est GFR (CKD-EPI)NonAf (>60 ml/min/1.73 sqM) Glucose (74-99) mg/dL Lactic Ac Sepsis Rflx Plasma Lactic Acid José Luis (0.7-2.0) mmol/L Calcium (8.4-10.2) mg/dL Total Bilirubin (0.2-1.3) mg/dL AST (14-36) U/L ALT (4-34) U/L Alkaline Phosphatase (38-126) U/L Total Protein (6.3-8.2) g/dL Albumin (3.5-5.0) g/dL Amylase (30-110) U/L Lipase (23-300) U/L Urine Color Colorless Urine Appearance Clear (Clear) Urine pH 5.0 (5.0-8.0) Ur Specific [place] 1.002 (1.001-1.035) Urine Protein Negative (Negative) Urine Glucose (UA) Negative (Negative) Urine Ketones Negative (Negative) Urine Blood Negative (Negative) Urine Nitrite Negative (Negative) Urine Bilirubin Negative (Negative) Urine Urobilinogen <2.0 (<2.0) mg/dL Ur Leukocyte Esterase Negative (Negative) 09/08/23 09/08/23 09/08/23 Range/Units 09:37 09:37 10:11 WBC (3.8-10.6) k/uL RBC (3.80-5.40) m/uL Hgb (11.4-16.0) gm/dL Hct (34.0-46.0) % MCV (80.0-100.0) fL MCH (25.0-35.0) pg MCHC (31.0-37.0) g/dL RDW (11.5-15.5) % Plt Count (150-450) k/uL MPV Neutrophils % % Lymphocytes % % Monocytes % % Eosinophils % % Basophils % % Neutrophils # (1.3-7.7) k/uL Lymphocytes # (1.0-4.8) k/uL Monocytes # (0-1.0) k/uL Eosinophils # (0-0.7) k/uL Basophils # (0-0.2) k/uL PT (10.0-12.5) sec INR (<1.2) APTT (22.0-30.0) sec Sodium 136 L (137-145) mmol/L Potassium 3.7 (3.5-5.1) mmol/L Chloride 100 (98-107) mmol/L Carbon Dioxide 24 (22-30) mmol/L Anion Gap 12 mmol/L BUN 5 L (7-17) mg/dL Creatinine 0.64 (0.52-1.04) mg/dL Est GFR (CKD-EPI)AfAm >90 (>60 ml/min/1.73 sqM) Est GFR (CKD-EPI)NonAf >90 (>60 ml/min/1.73 sqM) Glucose 143 H (74-99) mg/dL Lactic Ac Sepsis Rflx Y Plasma Lactic Acid José Luis 2.9 H* (0.7-2.0) mmol/L Calcium 9.8 (8.4-10.2) mg/dL Total Bilirubin 0.5 (0.2-1.3) mg/dL AST 25 (14-36) U/L ALT 21 (4-34) U/L Alkaline Phosphatase 81 (38-126) U/L Total Protein 7.7 (6.3-8.2) g/dL Albumin 4.7 (3.5-5.0) g/dL Amylase 57 (30-110) U/L Lipase 160 (23-300) U/L Urine Color Urine Appearance (Clear) Urine pH (5.0-8.0) Ur Specific [place] (1.001-1.035) Urine Protein (Negative) Urine Glucose (UA) (Negative) Urine Ketones (Negative) Urine Blood (Negative) Urine Nitrite (Negative) Urine Bilirubin (Negative) Urine Urobilinogen (<2.0) mg/dL Ur Leukocyte Esterase (Negative) 09/08/23 Range/Units 13:22 WBC (3.8-10.6) k/uL RBC (3.80-5.40) m/uL Hgb (11.4-16.0) gm/dL Hct (34.0-46.0) % MCV (80.0-100.0) fL MCH (25.0-35.0) pg MCHC (31.0-37.0) g/dL RDW (11.5-15.5) % Plt Count (150-450) k/uL MPV Neutrophils % % Lymphocytes % % Monocytes % % Eosinophils % % Basophils % % Neutrophils # (1.3-7.7) k/uL Lymphocytes # (1.0-4.8) k/uL Monocytes # (0-1.0) k/uL Eosinophils # (0-0.7) k/uL Basophils # (0-0.2) k/uL PT (10.0-12.5) sec INR (<1.2) APTT (22.0-30.0) sec Sodium (137-145) mmol/L Potassium (3.5-5.1) mmol/L Chloride (98-107) mmol/L Carbon Dioxide (22-30) mmol/L Anion Gap mmol/L BUN (7-17) mg/dL Creatinine (0.52-1.04) mg/dL Est GFR (CKD-EPI)AfAm (>60 ml/min/1.73 sqM) Est GFR (CKD-EPI)NonAf (>60 ml/min/1.73 sqM) Glucose (74-99) mg/dL Lactic Ac Sepsis Rflx Plasma Lactic Acid José Luis 1.1 (0.7-2.0) mmol/L Calcium (8.4-10.2) mg/dL Total Bilirubin (0.2-1.3) mg/dL AST (14-36) U/L ALT (4-34) U/L Alkaline Phosphatase (38-126) U/L Total Protein (6.3-8.2) g/dL Albumin (3.5-5.0) g/dL Amylase (30-110) U/L Lipase (23-300) U/L Urine Color Urine Appearance (Clear) Urine pH (5.0-8.0) Ur Specific [place] (1.001-1.035) Urine Protein (Negative) Urine Glucose (UA) (Negative) Urine Ketones (Negative) Urine Blood (Negative) Urine Nitrite (Negative) Urine Bilirubin (Negative) Urine Urobilinogen (<2.0) mg/dL Ur Leukocyte Esterase (Negative) - EKG Data -: EKG Interpreted by Me EKG Comments: 12-lead Electrocardiogram Interpretation Note EKG was reviewed and interpreted by myself. 12-lead ECG performed at 0923 is interpreted by me as revealing normal sinus rhythm at a rate of 80 beats per minute. [place] is normal. DC interval is 122 ms, QRS duration is 82 ms, QTc is 417 ms.. There were no ST or T wave abnormalities to suggest myocardial ischemia or injury. R wave progression across the precordium was satisfactory. By my interpretation this EKG is non-diagnostic for acute ischemia. Disposition Clinical Impression: Abdominal pain of unknown etiology, Dehydration Disposition: HOME SELF-CARE Condition: Good Instructions (If sedation given, give patient instructions): Abdominal Pain (ED) Prescriptions: Dicyclomine [Bentyl] 10 mg PO TID PRN 7 Days #21 capsule PRN Reason: Pain Is patient prescribed a controlled substance at d/c from ED?: No Referrals: Bisi Sanchez MD [Primary Care Provider] - 1-2 days Time of Disposition: 14:06
[2023-09-08 09:55] LABS: Basophils % (A) 1 %; Eosinophils # (A) 0.2 k/uL (0-0.7); Eosinophils % (A) 3 %; HCT 41.6 % (34.0-46.0); HGB 14.4 gm/dL (11.4-16.0); Lymphocytes # (A) 1.8 k/uL (1.0-4.8); Lymphocytes % (A) 22 %; MCH 32.8 pg (25.0-35.0); MCHC 34.6 g/dL (31.0-37.0); MCV 94.8 fL (80.0-100.0); Mean Platelet Volume 7.9; Monocytes # (A) 0.4 k/uL (0-1.0); Monocytes % (A) 5 %; Neutrophils # (A) 5.5 k/uL (1.3-7.7); Neutrophils % (A) 69 %; Platelet Count 278 k/uL (150-450); RBC 4.38 m/uL (3.80-5.40); RDW 11.7 % (11.5-15.5)
[2023-09-08 10:03] LABS: INR 0.9 (<1.2); Partial Thromboplastin Time 24.4 sec (22.0-30.0); Prothrombin Time 10.4 sec (10.0-12.5)
[2023-09-08 10:05] LABS: ALT 21 U/L (4-34); AST 25 U/L (14-36); African American GFR (CKD) >90 (>60 ml/min/1.73 sqM); Albumin 4.7 g/dL (3.5-5.0); Alkaline Phosphatase 81 U/L (38-126); Amylase 57 U/L (30-110); Anion Gap 12 mmol/L; Blood Urea Nitrogen 5 mg/dL (7-17); Calcium 9.8 mg/dL (8.4-10.2); Carbon Dioxide 24 mmol/L (22-30); Chloride 100 mmol/L (98-107); Glucose 143 mg/dL (74-99); Lipase 160 U/L (23-300); Non-African American GFR(CKD) >90 (>60 ml/min/1.73 sqM); Potassium 3.7 mmol/L (3.5-5.1); Sodium 136 mmol/L (137-145); Total Bilirubin 0.5 mg/dL (0.2-1.3); Total Protein 7.7 g/dL (6.3-8.2)
[2023-09-08 10:08] LABS: Appearance,Urine Clear (Clear); Bilirubin,Urine Negative (Negative); Blood,Urine Negative (Negative); Color,Urine Colorless; Glucose,Urine (UA) Negative (Negative); Ketones,Urine Negative (Negative); Leukocyte Esterase,Urine Negative (Negative); Nitrite,Urine Negative (Negative); Protein,Urine Negative (Negative); Specific Gravity,Urine 1.002 (1.001-1.035); Urobilinogen,Urine <2.0 mg/dL (<2.0)
[2023-09-08 10:21] VITALS: TEMP 98.1
[2023-09-08] MEDS ORDERED: SODIUM CHLORIDE 0.9% 500 ML 500 ML IV STA (11:23)
--- NOTE | 2023-09-08 11:38 | CT ---
EXAMINATION TYPE: CT abdomen pelvis wo con, CT lumbar spine wo con CT DLP: 862.4 mGycm, Automated exposure control for dose reduction was used. DATE OF EXAM: 09/08/2023 11:18 AM COMPARISON: CT abdomen pelvis most recent from 07/31/2023 MRI lumbar spine. CLINICAL INDICATION:Female, 58 years old with history of abd pain; Bladder pain TECHNIQUE: Axial CT of the ;CT abdomen pelvis wo con, CT lumbar spine wo con;Sagittal and coronal re formats were created on a separate workstation. Axial images of the lumbar spine with sagittal coronal reformats. Contrast used: mL of , (none if empty) Oral contrast used: without Oral Contrast (none if empty) FINDINGS: LOWER CHEST: Unremarkable ABDOMEN LIVER: Diffusely hypoattenuating parenchyma. GALLBLADDER AND BILE DUCTS: Gallbladder is distended. PANCREAS: Unremarkable. SPLEEN: Unremarkable. ADRENAL GLANDS: Unremarkable. 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 No eviden ce of hydronephrosis or renal calculus. The ureters are unremarkable. PELVIS BLADDER: Within normal limits and partially distended. REPRODUCTIVE: Unremarkable. ABDOMEN & PELVIS STOMACH AND BOWEL: No evidence of bowel obstruction. Scattered colonic diverticula are present. PERITONEUM/RETROPERITONEUM: No evidence of pneumoperitoneum or free fluid. VASCULATURE: Moderate atherosclerotic calcifications are present throughout the abdominal aorta and i ts branches. No evidence of aortic aneurysm. MUSCULOSKELETAL/lumbar spine: No acute osseous abnormalities postsurgical changes to L4-L5 with disce ctomy present. Visualized portions of the spinal canal given limitation of streak artifact at L5-S1 i s within normal limits. Fixation hardware is intact. No evidence for significant spinal canal stenosi s. Neural foramen are patent throughout the visualized spine. LYMPH NODES: No gross evidence for lymphadenopathy. SOFT TISSUE/ABDOMINAL WALL: Fat-containing umbilical hernia. IMPRESSION: 1. No evidence for acute abdominal process. Horseshoe kidney without evidence for obstructive uropat hy. The urinary bladder is within normal limits. Normal-appearing appendix. 2. No evidence for significant spinal canal or neural foraminal stenosis. Fixation hardware in the s pine is intact. No evidence for spinal fracture.
[2023-09-08] MEDS ORDERED: MORPHINE SULFATE 2 MG/ML SYRINGE IVP STA (11:47)
[2023-09-08] MEDS ORDERED: ONDANSETRON 4 MG ODT STARTER PACK 2 TAB BTL PO STA (14:31)
[2023-09-08 14:45] VITALS: BP 127/82; PULSE 70; RESP 16
== END 2023-09-08 14:43 | disposition home or self-care (01) ==
LOC: EC 08:52
DX: G31.84 Mild cognitive impairment of uncertain or unknown etiology (principal); E86.0 Dehydration; I10 Essential (primary) hypertension; F17.200 Nicotine dependence, unspecified, uncomplicated; Z79.899 Other long term (current) drug therapy; Z88.0 Allergy status to penicillin; Z88.1 Allergy status to other antibiotic agents; Z88.5 Allergy status to narcotic agent; Z88.6 Allergy status to analgesic agent; Z88.8 Allergy status to other drugs, medicaments and biological substances; Z91.041 Radiographic dye allergy status
CPT/HCPCS: 51798; 36415; 93005; 80053; 82150; 83605; 83690; 85025; 85610; 85730; 81003; 72131; 74176; 99285; 96374; 96375; 96376; 96361 ×2; J2270 ×2; J2765; S0119

== ENCOUNTER → 2024-01-11 | Outpatient (CLI) | payer OTHER ==
--- NOTE | 2024-01-14 08:58 | MM ---
Reason for Exam: Screening (asymptomatic). Last mammogram was performed 1 year(s) and 2 month(s) ago. Patient History: Menarche at age 13. First Full-Term at age 19. Postmenopausal. Paternal grandmother had breast cancer. Risk Values: Isabelle 5 year model risk: 0.9%. NCI Lifetime model risk: 5.7%. Prior Study Comparison: 11/11/2022 Bilateral MG screening mammo w CAD, [facility]. 11/24/2022 Right MG work up mamm w CAD RT, [facility]. 07/10/2023 Right MG 3D diag mammo w/cad RT, [facility]. Tissue Density: The breasts are heterogeneously dense, which may obscure small masses. Findings: Analyzed By CAD. There is no suspicious group of microcalcifications or new suspicious mass in either breast. Benign appearing calcification. Overall Assessment: Benign, BI-RAD 2 Management: Screening Mammogram of both breasts in 1 year. . Patient should continue monthly self-breast exams. A clinical breast exam by your physician is recommended on an annual basis. This exam should not preclude additional follow-up of suspicious palpable abnormalities. Note on Isabelle scores and lifetime risk: 1. A Isabelle score greater than 3% is considered moderate risk. If this is the case, consider specialist referral to assess eligibility for a risk reducing agent. 2. If overall lifetime risk for the development of breast cancer is 20% or higher, the patient may qualify for future screening with alternating mammogram and breast MRI. Electronically signed and approved by: Zoltan Sharp M.D. Radiologis
== END | disposition home or self-care (01) ==
LOC: RADMAMWWP 10:50
PROVIDERS: ATTEND Obstetrics & Gynecology
DX: Z12.31 Encounter for screening mammogram for malignant neoplasm of breast (principal); Z78.0 Asymptomatic menopausal state; Z80.3 Family history of malignant neoplasm of breast
CPT/HCPCS: 77067

== ENCOUNTER → 2024-02-08 | Outpatient (CLI) | payer OTHER ==
--- NOTE | 2024-02-08 21:45 | MR ---
MRI cervical spine and thoracic spine CLINICAL HISTORY: Upper extremity radiculopathy and mid back pain TECHNIQUE: Multiplanar, multisequence imaging of the cervical spine is performed without contrast. COMPARISON: 03/23/2018 FINDINGS: MRI cervical spine: The craniovertebral junction relationship some prevertebral soft tissues are normal. There is loss of the normal cervical lordosis. The cervical vertebral segments are normal in height and alignment there is no fracture or subluxatio n. There is mild degenerative disc disease C4-5 level where there is mild disc bulge and spondylosis. There is moderate degenerative disease at the C5-6 level where there is [id number] disc space narrowing and circumferential disc bulge. There is no cervical disc herniation. The cervical cord is normal in size and signal intensity and there is no cervical stenosis.. There is multilevel neural foraminal stenosis as follows; mild at C2-3 on the left, mild to moderate at C3-4 on the right, and moderate to severe at C4-5 on the right. MRI thoracic spine: The thoracic vertebral segments are normal in height and alignment and there is no fracture or sublux ation. The disc spaces are well maintained in height and there is no significant degenerative disc disease. There is no thoracic disc herniation. The thoracic cord is normal in size and signal intensity and there is no thoracic spinal stenosis. The neuroforamina are widely patent. Paraspinal soft tissues unremarkable. IMPRESSION: 1. [id number] degenerative disc disease in the lower cervical spine as described above. No cerv ical disc herniations. 2. Multilevel neural foraminal stenosis in the cervical region as described above, right greater melody n left. 3. No cervical or thoracic spinal stenosis or cervical or thoracic cord abnormality. 4. No thoracic disc herniation or neural foraminal stenosis.
== END | disposition home or self-care (01) ==
LOC: RADMRIMAIN 16:19
PROVIDERS: ATTEND Internal Medicine
DX: M50.121 Cervical disc disorder at C4-C5 level with radiculopathy (principal); M50.122 Cervical disc disorder at C5-C6 level with radiculopathy; M47.22 Other spondylosis with radiculopathy, cervical region; M99.71 Connective tissue and disc stenosis of intervertebral foramina of cervical region; M25.512 Pain in left shoulder; M25.511 Pain in right shoulder
CPT/HCPCS: 72141; 72146

== ENCOUNTER → 2024-02-11 | Outpatient (CLI) | payer OTHER ==
[2024-02-11 13:58] VITALS: BP 146/82; PULSE 69; RESP 16
--- NOTE | 2024-02-11 15:09 | P.PAINPG ---
Objective - Vital Signs Vital signs: Intake & Output 02/10/24 02/11/24 02/11/24 18:59 06:59 18:59 Weight 67.132 kg PQRS Measure Charge Sheet Comment: HISTORY OF PRESENT ILLNESS: A 58 yr old female presents today w severe and chronic LBP x 5 yrs secondary to L4-L5 post laminectomy syndrome for evaluation. She did not follow up w having the BL TFESI L5-S1 and stated today she does not want injections. Pt is allergic to most nonnarcotic, Schedule III and some II narcotics. Pt states pain level is provoked at 10 /10 in intensity, constant, localized in the lower lumbar spine, throbbing in character w shooting pain towards the feet. Pain is provoked by standing/ sitting for periods of 15 min or more. Pt initially requested pain medication only and stated Dr Castro told her we will give her that. Also states Dr Castro told her that steroid is not used in the ESIs and states she heard it elevates BP. Clarified to pt that steroid is used for ESIs and if pt develops a reaction, the best place to find out is in a hospital. Pain is alleviated by PT in 2018, heat, ice, repositioning and rest. Oswestry axial pain score at 31. Interventional procedures include L4-S1 fusion Medications include Tyl REVIEW OF ORGAN SYSTEMS: CONSTITUTIONAL: No fevers or chills. No recent weight loss. NEUROLOGICAL: + numbness and tingling along the distal extremities. No seizure disorders or headaches. MUSCULOSKELETAL: + pain PSYCHIATRIC: Denies current depression or suicidal thoughts. Physical Examinations : Constitutional : Cooperative , not in acute distress . Neurologic : Cranial nerve II to XII intact. No focal neurological deficits. Psychiatric : alert & oriented x 3. Matching mood & appropriate affect. Judgment & insight intact. Musculoskeletal : Cervical Spine Motor strength in the deltoid and biceps: Normal right side. Normal Left side Motor strength biceps and the wrist extensors: Normal right side . Normal left side Motor strength in the triceps muscle: Normal right side. Normal left side Deep tendon reflexes: Normal at the biceps. Normal at Brachioradialis. Normal at triceps Vertebral body tenderness to deep palpation over Cervical facet loading test: positive bilaterally Spurling test: positive bilaterally Neck distraction test: positive bilaterally Oj sign: positive bilaterally Lumbar spine Motor strength lower extremities ,thigh and legs 5/5 Right side , 5/5 Left side Deep tendon reflexes : Normal Knee Jerk. Normal Ankle Jerk Vertebral body tenderness over L5 Boles Test positive over BL L5-S1 Lumbar facet Loading Test: positive Right / positive Left Range of motion of the lumbar spine Flexion 30 degrees, extension 10 degrees Straight Leg Raise test: Left/ Right positive at degree Fernando test: positive right / positive left. Severe tenderness over the Sacroiliac joint on the Right / Left sides Gaenslen test: positive bilaterally Seated flexion test: positive bilaterally. Sacral spine : Severe tenderness over the Sacroiliac joint: right side / left side Range of motion: Flexion of the lumbar spine <60 degrees Range of motion: Extension of the lumbar spine <20 degrees Gaenslen's Test positive Jaime's Test positive Fernando test: positive right side / left side Thigh Thrust Test Sacral Thrust Test Imaging: MRI without contrast of the lumbar spine from 07/31/23 reviewed Assessment/ Plan : L4-L5 post laminectomy syndrome Recommendation of TENS unit. RTC on an as needed basis. All questions answered. I have spent greater than 30 minutes on patient care today. Dr Cuello was available by phone for the evaluation of this patient. The time was used to review the medical records including relevant urine studies and Prescription history (MAPs), review of the available imaging, evaluation and examination of the patient, coordination of care with the medical staff and if applicable referring physicians, as well as creation of the medical record PQRS Narrative: Smoking Status Current some day smoker Home Medications: Ambulatory Orders diazePAM [Valium] 5 mg PO DAILY PRN 11/18/21 Dicyclomine [Bentyl] 10 mg PO TID PRN 7 Days #21 capsule 09/08/23 Losartan [Cozaar] 50 mg PO DAILY 09/08/23 Controlled Substance Measures - Controlled Substance Measures Is patient prescribed a controlled substance at discharge?: No
== END ==
LOC: PNWHC3 13:04
PROVIDERS: ATTEND Specialist
DX: M96.1 Postlaminectomy syndrome, not elsewhere classified (principal); M47.816 Spondylosis without myelopathy or radiculopathy, lumbar region; F17.200 Nicotine dependence, unspecified, uncomplicated; G89.29 Other chronic pain; M54.50 Low back pain, unspecified; Z88.1 Allergy status to other antibiotic agents; Z88.8 Allergy status to other drugs, medicaments and biological substances; Z88.5 Allergy status to narcotic agent; Z88.0 Allergy status to penicillin; Z91.041 Radiographic dye allergy status; Z91.018 Allergy to other foods
CPT/HCPCS: 99211

== ENCOUNTER → 2024-06-27 | Outpatient (CLI) | payer OTHER ==
--- NOTE | 2024-06-27 10:11 | CTL ---
EXAMINATION TYPE: CT Low Dose Lung DATE OF EXAM ORDERED: 06/27/2024 HISTORY: Posterior history of nicotine dependence, 43 pack history, current smoker. Lung cancer scree clari CT DLP: 71.[address] CTDI: 2.1 mGy Automated exposure control for dose reduction was used. SCREENING VISIT: Second screen visit COMPARISON: 05/27/2023 TECHNIQUE: Low dose computed tomography scan was performed through the chest at 1 mm thick sections a nd reconstructed images in multiple planes at 1 mm and [address] DIAGNOSTIC QUALITY: Satisfactory FINDINGS: LUNG NODULES: Few stable punctate calcified granulomas. Stable left lower lobe 3.2 mm solid pulmonary nodule (series 4, image 206). Stable right lower lobe peripheral 3.0 mm solid pulmonary nodule (series 4, image 195). Stable peripheral anterior right upper lobe 3.3 mm pulmonary nodule (series 4, image 104). No new or enlarging pulmonary nodules. LUNGS: COPD: Severity: Mild Fibrosis: Severity: None Lymph nodes: None Other findings: None RIGHT PLEURAL SPACE: Effusion: None Calcification: None Thickening: None Pneumothorax: None LEFT PLEURAL SPACE: Effusion: None Calcification: None Thickening: None Pneumothorax: None HEART: Heart Size: Normal Coronary Calcification: Small Pericardial Effusion: None OTHER FINDINGS: Upper abdomen: Liver is diffusely hypoattenuating. Bony thorax: None Supraclavicular region: None Other: None IMPRESSION: 1. Few stable pulmonary nodules measuring up to 3.3 mm. No new or enlarging pulmonary nodules. 2. Hepatic steatosis. CT LUNG RAD AND CT CHEST RECOMMENDATION: Lung-Rad 2 Benign Appearance or Behavior: Continue annual sc reening with LDCT in 12 months. S Modifier (other clinically significant findings): None
== END | disposition home or self-care (01) ==
LOC: RADCTMAIN 08:53
PROVIDERS: ATTEND Family Medicine
DX: Z12.2 Encounter for screening for malignant neoplasm of respiratory organs (principal); K76.0 Fatty (change of) liver, not elsewhere classified; R91.8 Other nonspecific abnormal finding of lung field; F17.210 Nicotine dependence, cigarettes, uncomplicated
CPT/HCPCS: 71271

== ENCOUNTER 2024-07-19 19:48 | Inpatient (IN) | payer MEDICAID, OTHER ==
--- NOTE | 2024-07-19 20:11 | ED ---
Psych HPI - General Chief Complaint: Psychiatric Symptoms Stated Complaint: Mental Health Time Seen by Provider: 07/19/24 20:01 Source: patient, RN notes reviewed, old records reviewed Mode of arrival: ambulatory - History of Present Illness Initial Comments: This is a 59-year-old female presenting in acute psychosis, patient MD Complaint: altered mental status -: unknown Associated Psychiatric Symptoms: racing thoughts, auditory hallucinations, visual hallucinations, delusions Quality: constant Improves With: none Worsens With: none Associated Symptoms: denies other symptoms Treatments Prior to Arrival: placed on mental health hold - Related Data Previous Rx's Medication Instructions Recorded Dicyclomine [Bentyl] 10 mg PO TID PRN 7 Days #21 capsule 09/08/23 Losartan [Cozaar] 50 mg PO DAILY 30 Days #30 tab 07/21/24 diazePAM [Valium] 5 mg PO DAILY PRN 7 Days #7 tab 07/21/24 Allergies Allergy/AdvReac Type Severity Reaction Status Date / Time acetaminophen [From Tylenol] Allergy Dyspnea & Verified 09/08/23 10:08 Rash calcium carbonate Allergy Rash/Hives Verified 09/08/23 10:08 cephalexin monohydrate Allergy Rash/Hives Verified 09/08/23 10:08 [From Keflex] codeine Allergy Rash/Hives Verified 09/08/23 10:08 duloxetine [From Cymbalta] Allergy Hallucinations Verified 09/08/23 10:08 & Rash duloxetine HCl Allergy Hallucinations Verified 09/08/23 10:08 [From Cymbalta] & Rash escitalopram oxalate Allergy Rash/Hives Verified 09/08/23 10:08 [From Lexapro] hydrocodone Allergy Anaphylaxis Verified 09/08/23 10:08 hydrocortisone Allergy Rash/Hives Verified 09/08/23 10:08 hyoscyamine [Hyoscyamine] Allergy Rash/Hives Verified 09/08/23 10:08 Iodinated Contrast Media Allergy Rash/Hives Verified 09/08/23 10:08 [Iodinated Contrast Media - IV Dye] levocetirizine [From Xyzal] Allergy Vomiting & Verified 09/08/23 10:08 throat swelling linaclotide [From Linzess] Allergy Rash/Hives Verified 09/08/23 10:08 magnesium hydroxide Allergy Rash/Hives Verified 09/08/23 10:08 meperidine HCl [From Demerol] Allergy Rash/Hives Verified 09/08/23 10:08 metaxalone [From Skelaxin] Allergy Rash/Hives Verified 09/08/23 10:08 methylprednisolone Allergy Rash/Hives Verified 09/08/23 10:08 morphine sulfate Allergy Rash/Hives Verified 09/08/23 10:08 [From Avinza] NSAIDS (Non-Steroidal Allergy Rash/Hives Verified 09/08/23 10:08 Anti-Inflamma Penicillins Allergy Anaphylaxis Verified 09/08/23 10:12 -childhood propoxyphene HCl Allergy Rash/Hives Verified 09/08/23 10:08 [From Darvon] sucralfate [From Carafate] Allergy Unknown Verified 09/08/23 10:08 tramadol Allergy Rash/Hives Verified 09/08/23 10:08 vancomycin Allergy Rash/Hives Verified 09/08/23 10:08 venlafaxine HCl Allergy Rash/Hives Verified 09/08/23 10:08 [From Effexor] cranberry AdvReac Indigestion Verified 09/08/23 10:08 ondansetron HCl [From Zofran] AdvReac Nausea & Verified 09/08/23 10:08 Vomiting tuna AdvReac Nausea & Uncoded 09/08/23 08:58 Vomiting Review of Systems ROS Statement: Those systems with pertinent positive or pertinent negative responses have been documented in the HPI. ROS Other: All systems not noted in ROS Statement are negative. Past Medical History Past Medical History: Hypertension Additional Past Medical History / Comment(s): former etoh abuse, chronic pain syndrome History of Any Multi-Drug Resistant Organisms: None Reported Past Surgical History: Back Surgery, Orthopedic Surgery Additional Past Surgical History / Comment(s): shoulder, jaw, back surg x4 , right hand Past Psychological History: No Psychological Hx Reported Smoking Status: Current every day smoker Past Alcohol Use History: None Reported Past Drug Use History: None Reported General Exam Limitations: no limitations General appearance: alert, in no apparent distress Head exam: Present: atraumatic, normocephalic, normal inspection Eye exam: Present: normal appearance, PERRL, EOMI. Absent: scleral icterus, conjunctival injection, periorbital swelling ENT exam: Present: normal exam, mucous membranes moist Neck exam: Present: normal inspection. Absent: tenderness, meningismus, lymp hadenopathy Respiratory exam: Present: normal lung sounds bilaterally. Absent: respiratory distress, wheezes, rales, rhonchi, stridor Cardiovascular Exam: Present: regular rate, normal rhythm, normal heart sounds. Absent: systolic murmur, diastolic murmur, rubs, gallop, clicks GI/Abdominal exam: Present: soft, normal bowel sounds. Absent: distended, tenderness, guarding, rebound, rigid Extremities exam: Present: normal inspection, full ROM, normal capillary refill. Absent: tenderness, pedal edema, joint swelling, calf tenderness Back exam: Present: normal inspection Neurological exam: Present: alert, oriented X3, CN II-XII intact Psychiatric exam: Present: normal affect, normal mood Skin exam: Present: warm, dry, intact, normal color. Absent: rash Course Vital Signs 07/19/24 07/19/24 19:54 22:41 Temperature 97.9 F Pulse Rate 91 91 Respiratory 18 18 Rate Blood Pressure 170/110 131/84 O2 Sat by Pulse 98 96 Oximetry - Reevaluation(s) Reevaluation #1: 07/19/24 22:09 Medical records reviewed Reevaluation #2: 07/19/24 22:09 Medically cleared for psychiatric evaluation Reevaluation #4: Differential Mental Health Depression, anxiety, bipolar, psychosis, schizophrenia, borderline personality, situational depression, adjustment disorder, behavioral disorder, brain tumor, malingering, substance abuse, encephalopathy, medication reaction, dementia, hypothyroidism, degenerative neurologic disorder, lupus.... This is not meant to be all-inclusive list Medical Decision Making - Medical Decision Making 59 female to the ER for evaluation of acute psychosis and patient will be transferred to inpatient psychiatric evaluation and treatment - Lab Data Result diagrams: 07/20/24 07:01 07/21/24 06:41 Lab Results 07/19/24 07/19/24 07/19/24 Range/Units 20:30 20:30 21:29 Urine Color Yellow Urine Appearance Cloudy H (Clear) Urine pH 5.5 (5.0-8.0) Ur Specific [place] 1.016 (1.001-1.035) Urine Protein Trace H (Negative) Urine Glucose (UA) Negative (Negative) Urine Ketones Negative (Negative) Urine Blood Negative (Negative) Urine Nitrite Negative (Negative) Urine Bilirubin Negative (Negative) Urine Urobilinogen <2.0 (<2.0) mg/dL Ur Leukocyte Esterase Negative (Negative) Urine RBC 1 (0-5) /hpf Urine WBC 5 (0-5) /hpf Ur Squamous Epith Cells 6 H (0-4) /hpf Calcium Oxalate Crystal Moderate H (None) /hpf Urine Bacteria Rare H (None) /hpf Hyaline Casts 41 H (0-2) /lpf Urine Mucus Few H (None) /hpf Urine Opiates Screen Not Detected (NotDetected) Ur Oxycodone Screen Not Detected (NotDetected) Urine Methadone Screen Not Detected (NotDetected) Ur Barbiturates Screen Not Detected (NotDetected) U Tricyclic Antidepress Not Detected (NotDetected) Ur Phencyclidine Scrn Not Detected (NotDetected) Ur Amphetamines Screen Not Detected (NotDetected) U Methamphetamines Scrn Not Detected (NotDetected) U Benzodiazepines Scrn Detected H (NotDetected) Urine Cocaine Screen Not Detected (NotDetected) U Marijuana (THC) Screen Not Detected (NotDetected) SARS-CoV-2 (PCR) Not Detected (Not Detectd) Disposition Clinical Impression: Acute psychosis Disposition: TRANSFER TO PSYCH HOSP/UNIT Condition: Stable Is patient prescribed a controlled substance at d/c from ED?: No Time of Disposition: 22:10
[2024-07-19 21:12] LABS: Amphetamine Screen,Urine Not Detected (NotDetected); Barbiturate Screen,Urine Not Detected (NotDetected); Benzodiazepines Screen,Urine Detected (NotDetected); Cocaine Screen,Urine Not Detected (NotDetected); Methadone Screen, Urine Not Detected (NotDetected); Opiate Screen,Urine Not Detected (NotDetected); Oxycodone Screen, Urine Not Detected (NotDetected); Phencyclidine Screen,Urine Not Detected (NotDetected); Tricyclic Antidepressant,Urine Not Detected (NotDetected); Urn Cannabinoid Scrn Not Detected (NotDetected)
[2024-07-19] MEDS ORDERED: OLANZapine 5 MG TAB PO PRN (22:54)
[2024-07-19] MEDS ORDERED: OLANZapine 10 MG VIAL IM PRN (22:54)
[2024-07-19] MEDS ORDERED: DICYCLOMINE 10 MG CAP PO PRN (22:54)
[2024-07-19] MEDS: diazePAM 5 MG TAB PO PRN (23:50)
[2024-07-20 07:25] LABS: Basophils % (A) 0 %; Eosinophils # (A) 0.4 k/uL (0-0.7); Eosinophils % (A) 5 %; HCT 42.5 % (34.0-46.0); HGB 15.1 gm/dL (11.4-16.0); Lymphocytes % (A) 24 %; MCH 32.2 pg (25.0-35.0); MCHC 35.5 g/dL (31.0-37.0); MCV 90.6 fL (80.0-100.0); Mean Platelet Volume 8.2; Monocytes # (A) 0.5 k/uL (0-1.0); Monocytes % (A) 6 %; Neutrophils # (A) 5.1 k/uL (1.3-7.7); Neutrophils % (A) 63 %; Platelet Count 272 k/uL (150-450); RBC 4.69 m/uL (3.80-5.40); RDW 12.7 % (11.5-15.5); WBC 8.1 k/uL (3.8-10.6)
[2024-07-20 07:43] LABS: ALT 14 U/L (4-34); AST 25 U/L (14-36); African American GFR (CKD) >90 (>60 ml/min/1.73 sqM); Albumin 4.6 g/dL (3.5-5.0); Alkaline Phosphatase 78 U/L (38-126); Anion Gap 9 mmol/L; Blood Urea Nitrogen 5 mg/dL (7-17); Calcium 9.8 mg/dL (8.4-10.2); Carbon Dioxide 23 mmol/L (22-30); Chloride 97 mmol/L (98-107); Glucose 104 mg/dL (74-99); Non-African American GFR(CKD) >90 (>60 ml/min/1.73 sqM); Potassium 4.2 mmol/L (3.5-5.1); Sodium 129 mmol/L (137-145); Total Bilirubin 0.6 mg/dL (0.2-1.3); Total Protein 7.2 g/dL (6.3-8.2)
[2024-07-20] MEDS: NICOTINE 14MG/24HR PATCH TRANSDERM SCH (09:03)
[2024-07-20] MEDS: LOSARTAN 50 MG TAB PO SCH (09:04)
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
[2024-07-20 13:12] LABS: Appearance,Urine Cloudy (Clear); Bacteria,Urine Rare /hpf; Bilirubin,Urine Negative (Negative); Blood,Urine Negative (Negative); Calcium Oxalate Crystals,Urine Moderate /hpf; Color,Urine Yellow; Glucose,Urine (UA) Negative (Negative); Hyaline Casts,Urine 41 /lpf (0-2); Ketones,Urine Negative (Negative); Leukocyte Esterase,Urine Negative (Negative); Mucus,Urine Few /hpf; Nitrite,Urine Negative (Negative); PH, Urine 5.5 (5.0-8.0); Protein,Urine Trace (Negative); RBC,Urine 1 /hpf (0-5); Specific Gravity,Urine 1.016 (1.001-1.035); Squamous Epithelial Cell,Urine 6 /hpf (0-4); Urobilinogen,Urine <2.0 mg/dL (<2.0); WBC,Urine 5 /hpf (0-5)
[2024-07-20] MEDS: diazePAM 5 MG TAB PO PRN (15:57)
[2024-07-20 16:57] LABS: Chol/HDL Ratio 2.98 Ratio; LDL Cholesterol,Calculated 84.8 mg/dL (0.0-131.0); VLDL Calculation 14.22 mg/dL (5.00-40.00)
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
[2024-07-21] MEDS: PALIPERIDONE 3 MG TAB.ER.24 PO SCH (00:59)
[2024-07-21] MEDS: MORPHINE SULFATE 2 MG/ML SYRINGE IM STA (02:08)
[2024-07-21 03:41] LABS: Appearance,Urine Clear (Clear); Bilirubin,Urine Negative (Negative); Blood,Urine Negative (Negative); Color,Urine Colorless; Glucose,Urine (UA) Negative (Negative); Ketones,Urine Negative (Negative); Leukocyte Esterase,Urine Negative (Negative); Nitrite,Urine Negative (Negative); PH, Urine 5.5 (5.0-8.0); Protein,Urine Negative (Negative); Specific Gravity,Urine 1.005 (1.001-1.035); Urobilinogen,Urine <2.0 mg/dL (<2.0)
[2024-07-21 06:54] VITALS: TEMP 97.8
[2024-07-21 07:18] LABS: African American GFR (CKD) >90 (>60 ml/min/1.73 sqM); Anion Gap 7 mmol/L; Blood Urea Nitrogen 7 mg/dL (7-17); Calcium 9.9 mg/dL (8.4-10.2); Carbon Dioxide 28 mmol/L (22-30); Chloride 98 mmol/L (98-107); Glucose 90 mg/dL (74-99); Non-African American GFR(CKD) >90 (>60 ml/min/1.73 sqM); Potassium 4.2 mmol/L (3.5-5.1); Sodium 133 mmol/L (137-145)
[2024-07-21 10:33] VITALS: BP 104/66; PULSE 85; RESP 20
[2024-07-21 11:17] LABS: Hepatitis A Antibody IgM Nonreactive (Nonreactive); Hepatitis B Core IgM Nonreactive (Nonreactive); Hepatitis B Surface Antigen Nonreactive (Nonreactive); Hepatitis C IgG Antibody Nonreactive (Nonreactive)
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
[2024-07-21 15:02] LABS: HIV 2 AB Non-Reactive (Non-Reactive); HIV AB P24 Non-Reactive (Non-Reactive); HIV P24 AG Non-Reactive (Non-Reactive)
== END 2024-07-21 16:38 | disposition home or self-care (01) | DRG 751 ==
LOC: EC 19:48 → 3MHU 22:49
PROVIDERS: ADMIT Psychiatry & Neurology Psychiatry; ATTEND Psychiatry & Neurology Psychiatry
DX: F23 Brief psychotic disorder (principal); E86.1 Hypovolemia; E87.1 Hypo-osmolality and hyponatremia; F17.200 Nicotine dependence, unspecified, uncomplicated; F41.9 Anxiety disorder, unspecified; F60.0 Paranoid personality disorder; G89.4 Chronic pain syndrome; F10.11 Alcohol abuse, in remission; I10 Essential (primary) hypertension; Z79.899 Other long term (current) drug therapy; Z88.9 Allergy status to unspecified drugs, medicaments and biological substances; Z88.5 Allergy status to narcotic agent; Z88.0 Allergy status to penicillin; Z88.8 Allergy status to other drugs, medicaments and biological substances; Z88.6 Allergy status to analgesic agent; Z88.1 Allergy status to other antibiotic agents; Z91.041 Radiographic dye allergy status; Z28.310 Unvaccinated for COVID-19; Z28.21 Immunization not carried out because of patient refusal; Z11.52 Encounter for screening for COVID-19
CPT/HCPCS: 80048; 80053; 80061; 80074; 80306; 81001; 81003; 81025; 82075; 83036; 84443; 85025; 86631; 86632; 86780; 87390; 87635; 99285